=== PATIENT | male | born 1935 | race Caucasian/White ===

== ENCOUNTER 2020-11-24 07:58 | Inpatient (IN) | payer MEDICARE, BC ==
[2020-11-24] MEDS ORDERED: HYDROmorphone 0.5 MG/0.5 ML Syringe IVPUSH ONE ×2 (08:50→10:37)
[2020-11-24] MEDS ORDERED: Lactated Ringers 1,000 ML IV ONE ×2 (08:50→23:37)
--- NOTE | 2020-11-24 08:57 | EDM.PDOC ---
ED HPI GENERAL MEDICAL PROBLEM - General Chief Complaint: Abdominal Pain Stated Complaint: PAIN IN CHEST COUGHING Time Seen by Provider: 11/24/20 08:35 Source of Information: Reports: Patient, Old Records History Limitations: Reports: No Limitations - History of Present Illness INITIAL COMMENTS - FREE TEXT/NARRATIVE: 85 yo male presents with pain that began before bed last night. It started as RUQ pain and has since spread downward. He has not had fever or chills or nausea. Pain is not relieved or worsened by anything. No hx of the same. No pHx of any abdominal surgeries. He does report mild SOB, no cough. He had a normal BM last evening. He ate spaghetti with clam sauce for dinner before onset of sx's. Here with his . Onset: Gradual Onset Date: 11/23/20 Duration: Hour(s):, Getting Worse Location: Reports: Chest, Abdomen Quality: Reports: Ache (abdomen) Severity: Moderate Improves with: Reports: None Worsens with: Reports: Other (unsure) Context: Reports: Other (See HPI) Associated Symptoms: Denies: Fever/Chills, Nausea/Vomiting Treatments [employer]: Reports: Other (see below) (none) - Related Data Allergies Allergy/AdvReac Type Severity Reaction Status Date / Time amoxicillin Allergy Hives Verified 11/24/20 08:32 doxycycline Allergy Hives Verified 11/24/20 08:32 Home Meds: Home Meds ALPRAZolam [Xanax] 0.5 mg PO BEDTIME 05/11/16 [History] Brimonidine Tartrate/Timolol [Combigan 0.2%-0.5% Eye Drops] 1 drop TOP DAILY 05/11/16 [History] Cholecalciferol (Vitamin D3) [Vitamin D3] 1,000 unit PO DAILY 05/11/16 [History] Dorzolamide HCl/Timolol Maleat [Dorzolamide-Timolol Eye Drops] 1 drop TOP BID 05/11/16 [History] Fluticasone Propionate [Flonase Allergy Relief] 1 spray INH BID 05/11/16 [History] Hydrochlorothiazide/Lisinopril [Lisinopril-HCTZ 20-25 MG] 1 tab PO DAILY 05/11/16 [History] Multivitamin [Multi-Vitamin Daily] 1 tab PO DAILY 05/11/16 [History] PARoxetine [Paxil] 20 mg PO DAILY 05/11/16 [History] Simvastatin [Zocor] 20 mg PO BEDTIME 05/11/16 [History] Warfarin [Coumadin] 2.5 tab PO ASDIRECTED 05/11/16 [History] Warfarin [Coumadin] 3 mg PO ASDIRECTED 05/11/16 [History] amLODIPine [Norvasc] 5 mg PO DAILY #30 tab 05/12/16 [Rx] Loratadine/Pseudoephedrine [Claritin-D 12 Hour] 1 tab PO Q12HR 11/24/20 [History] Past Medical History HEENT History: Reports: Cataract, Glaucoma Cardiovascular History: Reports: Afib, Heart Murmur, High Cholesterol, Hypertension Respiratory History: Reports: Sleep Apnea Gastrointestinal History: Reports: Gastritis Musculoskeletal History: Reports: Osteoarthritis, Other (See Below) Other Musculoskeletal History: Draining l hip replacement.Multiple testing. Is no longer on antibiotic. Psychiatric History: Reports: Anxiety, Depression Endocrine/Metabolic History: Reports: Obesity/BMI 30+ Hematologic History: Reports: Blood Transfusion(s) - Infectious Disease History Infectious Disease History: Reports: Chicken Pox, Measles, Mumps - Past Surgical History Head Surgeries/Procedures: Reports: None HEENT Surgical History: Reports: Tonsillectomy Cardiovascular Surgical History: Reports: None Respiratory Surgical History: Reports: None GI Surgical History: Reports: Other (See Below) Other GI Surgeries/Procedures: sigmoidoscopy Endocrine Surgical History: Reports: None Musculoskeletal Surgical History: Reports: Hip Replacement Dermatological Surgical History: Reports: None Social & Family History - Tobacco Use Tobacco Use Status *Q: Former Tobacco User Used Tobacco, but Quit: Yes Month/Year Tobacco Last Used: 1989 Second Hand Smoke Exposure: No - Caffeine Use Caffeine Use: Reports: None - Recreational Drug Use Recreational Drug Use: No ED ROS GENERAL - Review of Systems Review Of Systems: See Below Constitutional: Reports: No Symptoms HEENT: Reports: No Symptoms Respiratory: Reports: Shortness of Breath. Denies: Wheezing, Pleuritic Chest Pain, Cough, Sputum, Hemoptysis Cardiovascular: Reports: No Symptoms Endocrine: Reports: No Symptoms GI/Abdominal: Reports: Abdominal Pain. Denies: Black Stool, Bloody Stool, Constipation, Diarrhea, Distension, Flatus, Hematemesis, Hematochezia, Melena, Nausea, Vomiting : Reports: No Symptoms Musculoskeletal: Reports: No Symptoms Skin: Reports: No Symptoms Neurological: Reports: No Symptoms Psychiatric: Reports: No Symptoms ED EXAM, GI/ABD - Physical Exam Exam: See Below Exam Limited By: No Limitations General Appearance: Alert, WD/WN, Mild Distress, Obese Eyes: Bilateral: Normal Appearance Ears: Normal External Exam, Normal Canal, Hearing Grossly Normal Nose: Normal Inspection, No Blood Throat/Mouth: Normal Inspection, Normal Lips, Normal Oropharynx, Normal Voice, No Airway Compromise, Other (dry oral mucosa) Head: Atraumatic, Normocephalic Neck: Normal Inspection Respiratory/Chest: No Respiratory Distress, Lungs Clear, Normal Breath Sounds, No Accessory Muscle Use Cardiovascular: No Edema, Tachycardia, Irregularly Irregular GI/Abdominal Exam: Soft, No Distention, Tender (RUQ). No: Non-Tender, Distended, Guarding, Rigid, Rebound Extremities: Normal Inspection Neurological: Alert, Oriented, CN II-XII Intact, Normal Cognition, No Motor/Sensory Deficits Psychiatric: Normal Affect, Normal Mood Skin Exam: Warm, Dry, Intact, Normal Color, No Rash Course - Vital Signs Text/Narrative:: Dr. Priest called @ 1231h Last Recorded V/S: Last Vital Signs Temp 36.4 C 11/24/20 08:38 Pulse 108 H 11/24/20 08:38 Resp 18 11/24/20 08:38 BP 135/54 L 11/24/20 08:38 Pulse Ox 92 L 11/24/20 08:38 - Orders/Labs/Meds Orders: Active Orders 24 hr Category Date Time Status Bladder Scan [RC] ASDIRECTED Care 11/24/20 11:44 Active Cardiac Monitoring [RC] .As Directed Care 11/24/20 08:57 Active EKG Documentation Completion [RC] ASDIRECTED Care 11/24/20 08:00 Active Chest 1V Frontal [CR] Stat Exams 11/24/20 08:51 Taken UA W/MICROSCOPIC [URIN] Stat Lab 11/24/20 08:51 Ordered Lactated Ringers [Ringers, Lactated] 1,000 ml Med 11/24/20 12:00 Active IV ASDIRECTED EKG 12 Lead [EK] Routine Ther 11/24/20 07:59 Stop Req Medication Orders Lactated Ringer's (Ringers, Lactated) 1,000 mls @ 500 mls/hr IV ASDIRECTED MILAN Labs: Laboratory Tests 11/24/20 11/24/20 11/24/20 Range/Units 09:30 09:30 09:30 WBC 12.9 H (4.5-11.0) K/uL RBC 4.28 L (4.30-5.90) M/uL Hgb 12.0 (12.0-15.0) g/dL Hct 37.8 L (40.0-54.0) % MCV 88 (80-98) fL MCH 28 (27-31) pg MCHC 32 (32-36) % Plt Count 380 (150-400) K/uL PT 25.6 H (9.5-12.0) sec INR 2.39 H (0.80-1.20) Sodium 139 L (140-148) mmol/L Potassium 4.1 (3.6-5.2) mmol/L Chloride 101 (100-108) mmol/L Carbon Dioxide 27 (21-32) mmol/L Anion Gap 15.1 H (5.0-14.0) mmol/L BUN 32 H D (7-18) mg/dL Creatinine 1.3 (0.8-1.3) mg/dL Est Cr Clr Drug Dosing 39.55 mL/min Estimated GFR (MDRD) 53 L (>60) Glucose 136 H (74-106) mg/dL Calcium 9.4 (8.5-10.1) mg/dL Total Bilirubin 1.1 H D (0.2-1.0) mg/dL AST 38 H D (15-37) U/L ALT 70 D (12-78) U/L Alkaline Phosphatase 189 H D (46-116) U/L Troponin I < 0.017 (0.000-0.056) ng/mL C-Reactive Protein 4.62 H (0.0-0.3) mg/dL Total Protein 7.6 (6.4-8.2) g/dL Albumin 3.1 L (3.4-5.0) g/dL Globulin 4.5 H (2.3-3.5) g/dL Albumin/Globulin Ratio 0.7 L (1.2-2.2) Lipase 135 (73-393) U/L Meds: Medications Generic Name Dose Route Start Last Admin Trade Name Freq PRN Reason Stop Dose Admin Lactated Ringer's 1,000 mls @ 500 mls/hr 11/24/20 12:00 Ringers, Lactated IV ASDIRECTED MILAN Discontinued Medications Generic Name Dose Route Start Last Admin Trade Name Freq PRN Reason Stop Dose Admin Hydromorphone HCl 0.5 mg 11/24/20 08:50 11/24/20 09:50 Hydromorphone 0.5 Mg/0.5 Ml Syringe IVPUSH 11/24/20 08:51 0.5 mg ONETIME ONE Administration Hydromorphone HCl 0.5 mg 11/24/20 10:37 11/24/20 10:58 Hydromorphone 0.5 Mg/0.5 Ml Syringe IVPUSH 11/24/20 10:38 0.5 mg ONETIME ONE Administration Lactated Ringer's 1,000 mls @ 1,000 mls/hr 11/24/20 08:50 11/24/20 09:50 Ringers, Lactated IV 11/24/20 09:49 1,000 mls/hr BOLUS ONE Administration Sodium Chloride 85 mls @ 3.5 mls/sec 11/24/20 11:00 11/24/20 11:19 Normal Saline IV 11/24/20 11:01 2.5 mls/sec ASDIRECTED MILAN Administration Iopamidol 150 ml 11/24/20 10:54 11/24/20 11:16 Iopamidol 612 Mg/Ml 500 Ml Multipack Bottle IV 11/24/20 10:55 100 ml ONETIME ONE Administration Ondansetron HCl 4 mg 11/24/20 09:52 11/24/20 09:58 Ondansetron 4 Mg/2 Ml Sdv IVPUSH 11/24/20 09:53 4 mg ONETIME ONE Administration Sodium Chloride 10 ml 11/24/20 10:54 11/24/20 11:19 Sodium Chloride 0.9% 10 Ml Syringe FLUSH 11/24/20 10:55 10 ml ONETIME ONE Administration - Radiology Interpretation Free Text/Narrative:: CXR-neg CT abd/pelvis with IV contrast- Impression : 1. Distended gallbladder with pericholecystic inflammatory change and/or gallbladder wall thickening. Mild perihepatic ascites inflammatory change in the lauri-hepatis. Findings suspicious for cholecystitis. 2. Left hip arthroplasty. There is fluid/ inflammatory change about the left hip arthroplasty which extends out to lateral hip. Correlate with patient`s surgical history. Please note that all CT scans at this facility use dose modulation, iterative reconstruction, and/or weight-based dosing when appropriate to reduce radiation dose to as low as reasonably achievable. Dictated by Dayna Montalvo MD @ 11/24/2020 12:27:[address] Results Date: 11/24/20 - Re-Assessments/Exams Free Text/Narrative Re-Assessment/Exam: 11/24/20 11:55 Bladder scan ~250 ml, will give another liter of LR Departure - Departure Time of Disposition: 12:35 Disposition: Admitted As Inpatient 67 Condition: Fair Clinical Impression: Acute cholecystitis - Discharge Information *PRESCRIPTION DRUG MONITORING PROGRAM REVIEWED*: Not Applicable *COPY OF PRESCRIPTION DRUG MONITORING REPORT IN PATIENT KRISTIE: Not Applicable Instructions: Cholecystitis, [id number] Referrals: PCP,None [Primary Care Provider] - Forms: ED Department Discharge Sepsis Event Note (ED) - Evaluation Sepsis Screening Result: No Definite Risk - Focused Exam Vital Signs: Vital Signs Temp Pulse Resp BP Pulse Ox 11/24/20 08:38 36.4 C 108 H 18 135/54 L 92 L 11/24/20 08:30 36.4 C 108 H 18 135/54 L 92 L - My Orders Last 24 Hours: My Active Orders 11/24/20 07:59 EKG 12 Lead [EK] Routine 11/24/20 08:00 EKG Documentation Completion [RC] ASDIRECTED 11/24/20 08:51 Chest 1V Frontal [CR] Stat UA W/MICROSCOPIC [URIN] Stat 11/24/20 08:57 Cardiac Monitoring [RC] .As Directed 11/24/20 11:44 Bladder Scan [RC] ASDIRECTED 11/24/20 12:00 Lactated Ringers [Ringers, Lactated] 1,000 ml IV ASDIRECTED - Assessment/Plan Last 24 Hours: My Active Orders 11/24/20 07:59 EKG 12 Lead [EK] Routine 11/24/20 08:00 EKG Documentation Completion [RC] ASDIRECTED 11/24/20 08:51 Chest 1V Frontal [CR] Stat UA W/MICROSCOPIC [URIN] Stat 11/24/20 08:57 Cardiac Monitoring [RC] .As Directed 11/24/20 11:44 Bladder Scan [RC] ASDIRECTED 11/24/20 12:00 Lactated Ringers [Ringers, Lactated] 1,000 ml IV ASDIRECTED
[2020-11-24] MEDS ORDERED: Ondansetron 4 MG/2 ML SDV IVPUSH ONE (09:52)
[2020-11-24] MEDS ORDERED: Sodium Chloride 0.9% 10 ML Syringe FLUSH ONE (10:54)
[2020-11-24] MEDS ORDERED: Iopamidol 612 MG/ML 500 ML Multipack Bottle IV ONE (10:54)
[2020-11-24] MEDS ORDERED: Lactated Ringers 1,000 ML IV SCH ×3 (12:00→21:00)
--- NOTE | 2020-11-24 12:29 | CRLCT ---
For Patients: As a result of the Century Cures Act, medical imaging exams and procedure reports are released immediately into your electronic medical record. You may view this report before your referring provider. If you have questions, please contact your health care provider. Indication: Right upper quadrant pain with elevated white count Technique: Contrast enhanced CT abdomen pelvis. 100 mL Isovue-300 Comparison: No comparison Findings: Heart is enlarged there is no pericardial effusion. Basilar atelectasis Small hiatal hernia. Spleen adrenal glands pancreas unremarkable. Atherosclerotic calcification of the abdominal aorta, ectatic. Symmetric enhancement of both kidneys bilateral renal cysts. Too small to small to characterize low-density lesions. Diverticulosis normal appendix. Bowel is unremarkable. Gallbladder is distended. Cholecystic inflammatory change and/or gallbladder wall thickening. Minimal perihepatic ascites. Periportal edema. Inflammatory changes in lauri-hepatis Small amount of in the pelvis. Hysterectomy. Left hip arthroplasty causing streak artifact. There is there is a fluid and/or inflammatory change about the left hip arthroplasty which extends out to the lateral hip. Small fat containing inguinal hernias. Impression : 1. Distended gallbladder with pericholecystic inflammatory change and/or gallbladder wall thickening. Mild perihepatic ascites inflammatory change in the lauri-hepatis. Findings suspicious for cholecystitis. 2. Left hip arthroplasty. There is fluid/ inflammatory change about the left hip arthroplasty which extends out to lateral hip. Correlate with patient`s surgical history. Please note that all CT scans at this facility use dose modulation, iterative reconstruction, and/or weight-based dosing when appropriate to reduce radiation dose to as low as reasonably achievable. Dictated by Dayna Montalvo MD @ 11/24/2020 12:27:[address] Dayna Montalvo @ Nov 24 2020 12:27PM
[2020-11-24 14:06] LABS: CORONAVIRUS COVID-19 NAA NEGATIVE (NEGATIVE)
[2020-11-24] MEDS ORDERED: Scopolamine 1.5 MG Transdermal Patch TOP PRN (15:32)
[2020-11-24] MEDS ORDERED: Promethazine 12.5 MG in Sodium Chloride 0.9% 50 ML IV PRN (15:37)
[2020-11-24] MEDS ORDERED: diphenhydrAMINE 50 MG/ML SDV IV PRN (15:38)
[2020-11-24] MEDS ORDERED: diphenhydrAMINE 25 MG Cap PO PRN (15:39)
[2020-11-24] MEDS ORDERED: Nicotine 14 MG/24 Hr Patch TRDERM PRN (15:39)
[2020-11-24] MEDS ORDERED: Phytonadione 5 MG in Sodium Chloride 0.9% 50 ML IV ONE (16:00)
[2020-11-24] MEDS: fentaNYL 100 MCG/2 ML SDV IV PRN ×2 (16:02→17:24)
[2020-11-24] MEDS: Sodium Chloride 0.9% 1,000 ML IV SCH (16:13)
--- NOTE | 2020-11-24 16:47 | PCM.CONS ---
H&P History of Present Illness - General Date of Service: 11/24/20 Source of Information: Patient, Family, Old Records, Provider, RN Notes Reviewed History Limitations: Reports: No Limitations - History of Present Illness Initial Comments - Free Text/Narative: Mr. Casey is an 85-year-old gentleman who I been asked to see by Dr. Priest for suggestions concerning evaluation management of anticoagulation pending surgery tomorrow for acute cholecystitis. Mr. Casey was feeling well until last night when he noted onset of right upper quadrant abdominal pain associated with nausea. Pain was persistent and became more intense to the point that he was unable to sleep. He presented to the emergency department this morning for further evaluation. CT scan of the abdomen pelvis shows evidence of acute cholecystitis. He is on long-term oral anticoagulation with warfarin for management of his atrial fibrillation. INR today was therapeutic at 2.39. - Related Data Allergies/Adverse Reactions: Allergies Allergy/AdvReac Type Severity Reaction Status Date / Time amoxicillin Allergy Hives Verified 11/24/20 08:32 doxycycline Allergy Hives Verified 11/24/20 08:32 Home Medications: Home Meds ALPRAZolam [Xanax] 0.5 mg PO BEDTIME 05/11/16 [History] Brimonidine Tartrate/Timolol [Combigan 0.2%-0.5% Eye Drops] 1 drop TOP DAILY 05/11/16 [History] Cholecalciferol (Vitamin D3) [Vitamin D3] 1,000 unit PO DAILY 05/11/16 [History] Dorzolamide HCl/Timolol Maleat [Dorzolamide-Timolol Eye Drops] 1 drop TOP BID 05/11/16 [History] Fluticasone Propionate [Flonase Allergy Relief] 1 spray INH BID 05/11/16 [History] Hydrochlorothiazide/Lisinopril [Lisinopril-HCTZ 20-25 MG] 1 tab PO DAILY 05/11/16 [History] Multivitamin [Multi-Vitamin Daily] 1 tab PO DAILY 05/11/16 [History] PARoxetine [Paxil] 20 mg PO DAILY 05/11/16 [History] Simvastatin [Zocor] 20 mg PO BEDTIME 05/11/16 [History] Warfarin [Coumadin] 2.5 tab PO ASDIRECTED 05/11/16 [History] Warfarin [Coumadin] 3 mg PO ASDIRECTED 05/11/16 [History] amLODIPine [Norvasc] 5 mg PO DAILY #30 tab 05/12/16 [Rx] Loratadine/Pseudoephedrine [Claritin-D 12 Hour] 1 tab PO Q12HR 11/24/20 [History] Past Medical History HEENT History: Reports: Cataract, Glaucoma Cardiovascular History: Reports: Afib, Heart Murmur, High Cholesterol, Hyp ertension Respiratory History: Reports: Sleep Apnea Gastrointestinal History: Reports: Gastritis Musculoskeletal History: Reports: Osteoarthritis, Other (See Below) Other Musculoskeletal History: Draining l hip replacement.Multiple testing. Is no longer on antibiotic. Psychiatric History: Reports: Anxiety, Depression Endocrine/Metabolic History: Reports: Obesity/BMI 30+ Hematologic History: Reports: Blood Transfusion(s) - Infectious Disease History Infectious Disease History: Reports: Chicken Pox, Measles, Mumps - Past Surgical History Head Surgeries/Procedures: Reports: None HEENT Surgical History: Reports: Tonsillectomy Cardiovascular Surgical History: Reports: None Respiratory Surgical History: Reports: None GI Surgical History: Reports: Other (See Below) Other GI Surgeries/Procedures: sigmoidoscopy Endocrine Surgical History: Reports: None Musculoskeletal Surgical History: Reports: Hip Replacement Dermatological Surgical History: Reports: None Social & Family History - Tobacco Use Tobacco Use Status *Q: Former Tobacco User Used Tobacco, but Quit: Yes Month/Year Tobacco Last Used: 1989 Second Hand Smoke Exposure: No - Caffeine Use Caffeine Use: Reports: None - Recreational Drug Use Recreational Drug Use: No H&P Review of Systems - Review of Systems: Review Of Systems: See Below General: Reports: No Symptoms HEENT: Reports: No Symptoms Pulmonary: Reports: No Symptoms Cardiovascular: Reports: No Symptoms Gastrointestinal: Reports: Abdominal Pain, Nausea. Denies: Constipation, Diarrhea, Difficulty Swallowing, Distension, Hematemesis, Hematochezia, Melena, Vomiting Genitourinary: Reports: No Symptoms Musculoskeletal: Reports: Joint Pain Skin: Reports: No Symptoms Psychiatric: Reports: No Symptoms Neurological: Reports: No Symptoms Hematologic/Lymphatic: Reports: No Symptoms Immunologic: Reports: No Symptoms Exam - Exam Exam: See Below - Vital Signs Vital Signs: Last Vital Signs Temp 97.5 F 11/24/20 08:38 Pulse 108 H 11/24/20 08:38 Resp 18 11/24/20 08:38 BP 135/54 L 11/24/20 08:38 Pulse Ox 92 L 11/24/20 08:38 Weight: 248 lb - Exam General: Alert, Oriented, Cooperative, Moderate Distress HEENT: Conjunctiva Clear, Hearing Intact, Mucosa Moist & Mcgrath. No: Normal Nasal Septum, Posterior Pharynx Clear, Pupils Equal Neck: Supple, Trachea Midline, +2 Carotid Pulse wo Bruit Lungs: Clear to Auscultation, Normal Respiratory Effort Cardiovascular: Regular Rate, Normal S1, Normal S2, Irregular Rhythm. No: Systolic Murmur, Diastolic Murmur GI/Abdominal Exam: Soft, No Organomegaly, Tender. No: Distended, Guarding, Rigid, Rebound Back Exam: Normal Inspection, Full Range of Motion Extremities: Non-Tender, No Pedal Edema Skin: Warm, Dry, Intact - Patient Data Lab Results Last 24 hrs: Laboratory Results - last 24 hr 11/24/20 11/24/20 11/24/20 Range/Units 09:30 09:30 09:30 WBC 12.9 H (4.5-11.0) K/uL RBC 4.28 L (4.30-5.90) M/uL Hgb 12.0 (12.0-15.0) g/dL Hct 37.8 L (40.0-54.0) % MCV 88 (80-98) fL MCH 28 (27-31) pg MCHC 32 (32-36) % Plt Count 380 (150-400) K/uL PT 25.6 H (9.5-12.0) sec INR 2.39 H (0.80-1.20) Sodium 139 L (140-148) mmol/L Potassium 4.1 (3.6-5.2) mmol/L Chloride 101 (100-108) mmol/L Carbon Dioxide 27 (21-32) mmol/L Anion Gap 15.1 H (5.0-14.0) mmol/L BUN 32 H D (7-18) mg/dL Creatinine 1.3 (0.8-1.3) mg/dL Est Cr Clr Drug Dosing 39.55 mL/min Estimated GFR (MDRD) 53 L (>60) Glucose 136 H (74-106) mg/dL Calcium 9.4 (8.5-10.1) mg/dL Total Bilirubin 1.1 H D (0.2-1.0) mg/dL AST 38 H D (15-37) U/L ALT 70 D (12-78) U/L Alkaline Phosphatase 189 H D (46-116) U/L Troponin I < 0.017 (0.000-0.056) ng/mL C-Reactive Protein 4.62 H (0.0-0.3) mg/dL Total Protein 7.6 (6.4-8.2) g/dL Albumin 3.1 L (3.4-5.0) g/dL Globulin 4.5 H (2.3-3.5) g/dL Albumin/Globulin Ratio 0.7 L (1.2-2.2) Lipase 135 (73-393) U/L Influenza Type A RNA (NEGATIVE) RSV RNA (INAAT) (NEGATIVE) Influenza Type B RNA (NEGATIVE) SARS-CoV-2 RNA (RONNIE) (NEGATIVE) 11/24/20 Range/Units 12:42 WBC (4.5-11.0) K/uL RBC (4.30-5.90) M/uL Hgb (12.0-15.0) g/dL Hct (40.0-54.0) % MCV (80-98) fL MCH (27-31) pg MCHC (32-36) % Plt Count (150-400) K/uL PT (9.5-12.0) sec INR (0.80-1.20) Sodium (140-148) mmol/L Potassium (3.6-5.2) mmol/L Chloride (100-108) mmol/L Carbon Dioxide (21-32) mmol/L Anion Gap (5.0-14.0) mmol/L BUN (7-18) mg/dL Creatinine (0.8-1.3) mg/dL Est Cr Clr Drug Dosing mL/min Estimated GFR (MDRD) (>60) Glucose (74-106) mg/dL Calcium (8.5-10.1) mg/dL Total Bilirubin (0.2-1.0) mg/dL AST (15-37) U/L ALT (12-78) U/L Alkaline Phosphatase (46-116) U/L Troponin I (0.000-0.056) ng/mL C-Reactive Protein (0.0-0.3) mg/dL Total Protein (6.4-8.2) g/dL Albumin (3.4-5.0) g/dL Globulin (2.3-3.5) g/dL Albumin/Globulin Ratio (1.2-2.2) Lipase (73-393) U/L Influenza Type A RNA Negative (NEGATIVE) RSV RNA (INAAT) Negative (NEGATIVE) Influenza Type B RNA Negative (NEGATIVE) SARS-CoV-2 RNA (RONNIE) Negative (NEGATIVE) Result Diagrams: 11/24/20 09:30 11/24/20 09:30 Sepsis Event Note - Evaluation Sepsis Screening Result: No Definite Risk - Focused Exam Vital Signs: Vital Signs Temp Pulse Resp BP Pulse Ox 11/24/20 08:38 97.5 F 108 H 18 135/54 L 92 L 11/24/20 08:30 97.5 F 108 H 18 135/54 L 92 L Consult PN Assessment/Plan Procedures: Procedures ASSAY OF DIGOXIN TOTAL (05/11/16) ASSAY OF LACTIC ACID (05/11/16) ASSAY OF TROPONIN QUANT (05/11/16) C-REACTIVE PROTEIN (05/11/16) CHEST X-RAY 1 VIEW FRONTAL (05/11/16) COMPLETE CBC W/AUTO DIFF WBC (05/11/16) COMPREHEN METABOLIC PANEL (05/11/16) ELECTROCARDIOGRAM TRACING (05/11/16) EMERGENCY DEPT VISIT (05/11/16) HYDRATE IV INFUSION ADD-ON (05/11/16) HYDRATION IV INFUSION INIT (05/11/16) METABOLIC PANEL TOTAL CA (05/11/16) PROTHROMBIN TIME (05/11/16) PT EVALUATION (05/11/16) RBC SED RATE NONAUTOMATED (05/11/16) ROUTINE VENIPUNCTURE (05/11/16) URINALYSIS AUTO W/SCOPE (05/11/16) Problem List Initiated/Reviewed/Updated: Yes My Orders Last 24 Hours: My Active Orders 11/24/20 13:20 Phytonadione [AquaMephyton] 5 mg Sodium Chloride 0.9% [Normal Saline] 50 ml IV NOW 11/25/20 05:11 INR,PT,PROTHROMBIN TIME [COAG] AM Plan: ASSESSMENT AND RECOMMENDATIONS ACUTE CHOLECYSTITIS-plan for surgery in a.m. -Management per Dr. Priest ANTICOAGULATION WITH ELEVATED INR-he is on long-term oral anticoagulation with warfarin because of chronic atrial fibrillation. -Hold warfarin -Vitamin K 5 mg IV now -Recheck INR in a.m. Requesting Provider: FITZ Date Consult Requested: 11/24/20 Reason for Consult: Cholecystitis, elevated INR Patient History Reviewed: Yes
[2020-11-24] MEDS ORDERED: Ertapenem 1 GM in Sodium Chloride 0.9% 100 ML IV SCH (19:00)
--- NOTE | 2020-11-24 20:40 | PCM.SN.2 ---
- Free Text/Narrative Note: Mr. Casey is an 85-year-old gentleman who I saw earlier today concerning his elevated INR. He was admitted through the emergency room with acute cholecystitis. I was asked to see him this evening by nursing staff because of hypotension and hypoxia. After transfer to the floor he was noted to have hypoxia and required 3 to 4 L of oxygen via nasal cannula to maintain adequate oxygenation. He was attempting to get out of bed and became extremely lightheaded and weak. Blood pressure was obtained and found to be 63 systolic. He has received 1 L of IV fluid over the last hour and pressure has improved but is not yet within desired range. I am concerned about give him large volume of fluid because of his respiratory compromise. We will now run fluids at 250 an hour for 4 hours and then down to 125 an hour if he has ongoing hypotension we will plan to move towards use of norepinephrine. Respiratory status seems to be fairly stable thus far and he remains on 4 L of oxygen per minute via nasal cannula with adequate saturations. If he should develop further compromise we will plan to proceed with BiPAP. Other labs show an increase in creatinine from 1.3-1.8. Lactic acid and troponin level are within normal range. He has been started on ertapenem by Dr. Priest and his first dose is running now.
[2020-11-24] MEDS ORDERED: Fluticasone Propionate Nasal Spray 16 GM Bottle NASBOTH SCH (21:00)
[2020-11-24] MEDS: Dorzolamide/Timolol 2%-0.5% Ophth Soln 10 ML Bottle EYEBOTH SCH (21:45)
[2020-11-24] MEDS: atorvaSTATin 10 MG Tab PO SCH (21:45)
[2020-11-24] MEDS: ALPRAZolam 0.5 MG Tab PO SCH (23:53)
[2020-11-25] MEDS: Sodium Chloride 0.9% 1,000 ML IV SCH ×3 (01:45→17:11)
[2020-11-25] MEDS: Pantoprazole 40 MG Vial IVPUSH SCH ×2 (02:33→14:01)
[2020-11-25] MEDS: Norepinephrine 4 MG in Dextrose 5% in Water 246 ML IV SCH ×4 (02:34→13:44)
[2020-11-25] MEDS ORDERED: Lisinopril 20 MG Tab PO SCH (09:00)
[2020-11-25] MEDS ORDERED: Non-Formulary Medication 1 Each (Hydrochlorothiazide/Lisinopril [Lisinopril-Hctz 20-25 Mg] PO SCH (09:00)
[2020-11-25] MEDS ORDERED: Hydrochlorothiazide 25 MG Tab PO SCH (09:00)
[2020-11-25] MEDS ORDERED: Timolol Maleate 0.5% Ophth Soln 5 ML Bottle EYEBOTH SCH (09:00)
[2020-11-25] MEDS ORDERED: amLODIPine 5 MG Tab PO SCH (09:00)
[2020-11-25] MEDS: Brimonidine 0.2% Ophth Soln 5 ML Bottle EYEBOTH SCH (09:12)
[2020-11-25] MEDS: Dorzolamide/Timolol 2%-0.5% Ophth Soln 10 ML Bottle EYEBOTH SCH ×2 (09:13→21:03)
[2020-11-25] MEDS: Fluticasone Propionate Nasal Spray 16 GM Bottle NASBOTH SCH ×3 (09:13→21:06)
[2020-11-25] MEDS: PARoxetine 20 MG Tab PO SCH (09:20)
--- NOTE | 2020-11-25 09:21 | PCM.PN ---
- General Info Date of Service: 11/25/20 Subjective Update: No acute events overnight since transfer to the intensive care unit. Patient reports that he does not feel short of breath at this time and has not been coughing. He is currently requiring 2 L of supplemental oxygen. He reports moderate abdominal pain that is much worse with any sort of palpation. He reports 5 episodes of bloody diarrhea which have been small quantity. He has had some nausea. He is requiring norepinephrine to maintain his blood pressure. White blood cell count is higher today. Functional Status: Reports: Pain Controlled - Review of Systems General: Denies: Fever Gastrointestinal: Reports: Abdominal Pain - Patient Data Vitals - Most Recent: Last Vital Signs Temp 36.6 C 11/25/20 07:48 Pulse 106 H 11/24/20 22:00 Resp 20 11/25/20 09:00 BP 118/53 L 11/25/20 09:00 Pulse Ox 92 L 11/25/20 09:00 Weight - Most Recent: 113.398 kg I&O - Last 24 Hours: Intake & Output 11/24/20 11/25/20 11/25/20 22:59 06:59 14:59 Intake Total 1060 5435 Output Total 300 Balance 1060 5135 Lab Results Last 24 Hours: Laboratory Results - last 24 hr 11/24/20 11/24/20 11/24/20 Range/Units 09:30 09:30 09:30 WBC 12.9 H (4.5-11.0) K/uL RBC 4.28 L (4.30-5.90) M/uL Hgb 12.0 (12.0-15.0) g/dL Hct 37.8 L (40.0-54.0) % MCV 88 (80-98) fL MCH 28 (27-31) pg MCHC 32 (32-36) % Plt Count 380 (150-400) K/uL Neut % (Auto) (36-66) % Lymph % (Auto) (24-44) % [place] % (Auto) (2-6) % Eos % (Auto) (2-4) % Baso % (Auto) (0-1) % PT 25.6 H (9.5-12.0) sec INR 2.39 H (0.80-1.20) Puncture Site ABG pH (7.350-7.450) ABG pCO2 (35.0-42.0) mmHg ABG pO2 (75.0-100.0) mmHg ABG HCO3 (22.0-26.0) mmol/L ABG Total CO2 (23.0-27.0) mmol/L ABG O2 Saturation (95.0-98.0) % ABG O2 Content (15.0-23.0) %vol ABG Base Excess mm/L ABG Hemoglobin (13.5-18.0) g/dL ABG Oxyhemoglobin % ABG Carboxyhemoglobin (0.0-1.6) % ABG Methemoglobin % Martin Test O2 Delivery Device Oxygen Flow Rate L Sodium 139 L (140-148) mmol/L Potassium 4.1 (3.6-5.2) mmol/L Chloride 101 (100-108) mmol/L Carbon Dioxide 27 (21-32) mmol/L Anion Gap 15.1 H (5.0-14.0) mmol/L BUN 32 H D (7-18) mg/dL Creatinine 1.3 (0.8-1.3) mg/dL Est Cr Clr Drug Dosing 39.55 mL/min Estimated GFR (MDRD) 53 L (>60) Glucose 136 H (74-106) mg/dL Lactic Acid (0.4-2.0) mmol/L Calcium 9.4 (8.5-10.1) mg/dL Total Bilirubin 1.1 H D (0.2-1.0) mg/dL AST 38 H D (15-37) U/L ALT 70 D (12-78) U/L Alkaline Phosphatase 189 H D (46-116) U/L Troponin I < 0.017 (0.000-0.056) ng/mL C-Reactive Protein 4.62 H (0.0-0.3) mg/dL Total Protein 7.6 (6.4-8.2) g/dL Albumin 3.1 L (3.4-5.0) g/dL Globulin 4.5 H (2.3-3.5) g/dL Albumin/Globulin Ratio 0.7 L (1.2-2.2) Lipase 135 (73-393) U/L Influenza Type A RNA (NEGATIVE) RSV RNA (INAAT) (NEGATIVE) Influenza Type B RNA (NEGATIVE) SARS-CoV-2 RNA (RONNIE) (NEGATIVE) Blood Type Gel Antibody Screen Crossmatch 11/24/20 11/24/20 11/24/20 Range/Units 12:42 19:30 19:30 WBC 16.4 H (4.5-11.0) K/uL RBC 4.20 L (4.30-5.90) M/uL Hgb 11.7 L (12.0-15.0) g/dL Hct 37.3 L (40.0-54.0) % MCV 89 (80-98) fL MCH 28 (27-31) pg MCHC 31 L (32-36) % Plt Count 335 (150-400) K/uL Neut % (Auto) 80.8 H (36-66) % Lymph % (Auto) 11.5 L (24-44) % [place] % (Auto) 7.6 H (2-6) % Eos % (Auto) 0.0 L (2-4) % Baso % (Auto) 0.1 (0-1) % PT (9.5-12.0) sec INR (0.80-1.20) Puncture Site ABG pH (7.350-7.450) ABG pCO2 (35.0-42.0) mmHg ABG pO2 (75.0-100.0) mmHg ABG HCO3 (22.0-26.0) mmol/L ABG Total CO2 (23.0-27.0) mmol/L ABG O2 Saturation (95.0-98.0) % ABG O2 Content (15.0-23.0) %vol ABG Base Excess mm/L ABG Hemoglobin (13.5-18.0) g/dL ABG Oxyhemoglobin % ABG Carboxyhemoglobin (0.0-1.6) % ABG Methemoglobin % Martin Test O2 Delivery Device Oxygen Flow Rate L Sodium 137 L (140-148) mmol/L Potassium 4.7 (3.6-5.2) mmol/L Chloride 103 (100-108) mmol/L Carbon Dioxide 23 (21-32) mmol/L Anion Gap 15.7 H (5.0-14.0) mmol/L BUN 39 H (7-18) mg/dL Creatinine 1.8 H (0.8-1.3) mg/dL Est Cr Clr Drug Dosing 28.56 mL/min Estimated GFR (MDRD) 36 L (>60) Glucose 90 (74-106) mg/dL Lactic Acid (0.4-2.0) mmol/L Calcium 9.2 (8.5-10.1) mg/dL Total Bilirubin (0.2-1.0) mg/dL AST (15-37) U/L ALT (12-78) U/L Alkaline Phosphatase (46-116) U/L Troponin I 0.019 (0.000-0.056) ng/mL C-Reactive Protein (0.0-0.3) mg/dL Total Protein (6.4-8.2) g/dL Albumin (3.4-5.0) g/dL Globulin (2.3-3.5) g/dL Albumin/Globulin Ratio (1.2-2.2) Lipase (73-393) U/L Influenza Type A RNA Negative (NEGATIVE) RSV RNA (INAAT) Negative (NEGATIVE) Influenza Type B RNA Negative (NEGATIVE) SARS-CoV-2 RNA (RONNIE) Negative (NEGATIVE) Blood Type Gel Antibody Screen Crossmatch 11/24/20 11/24/20 11/24/20 Range/Units 19:30 19:38 19:38 WBC (4.5-11.0) K/uL RBC (4.30-5.90) M/uL Hgb (12.0-15.0) g/dL Hct (40.0-54.0) % MCV (80-98) fL MCH (27-31) pg MCHC (32-36) % Plt Count (150-400) K/uL Neut % (Auto) (36-66) % Lymph % (Auto) (24-44) % [place] % (Auto) (2-6) % Eos % (Auto) (2-4) % Baso % (Auto) (0-1) % PT (9.5-12.0) sec INR (0.80-1.20) Puncture Site Lt brachial ABG pH 7.357 (7.350-7.450) ABG pCO2 41.6 (35.0-42.0) mmHg ABG pO2 71.1 L (75.0-100.0) mmHg ABG HCO3 22.7 (22.0-26.0) mmol/L ABG Total CO2 20.8 L (23.0-27.0) mmol/L ABG O2 Saturation 92.6 L (95.0-98.0) % ABG O2 Content 15.3 (15.0-23.0) %vol ABG Base Excess -2.1 mm/L ABG Hemoglobin 12.1 L (13.5-18.0) g/dL ABG Oxyhemoglobin 90.3 % ABG Carboxyhemoglobin 1.6 (0.0-1.6) % ABG Methemoglobin 0.9 % Martin Test N/a O2 Delivery Device Nasal cannula Oxygen Flow Rate 5.0 L Sodium (140-148) mmol/L Potassium (3.6-5.2) mmol/L Chloride (100-108) mmol/L Carbon Dioxide (21-32) mmol/L Anion Gap (5.0-14.0) mmol/L BUN (7-18) mg/dL Creatinine (0.8-1.3) mg/dL Est Cr Clr Drug Dosing mL/min Estimated GFR (MDRD) (>60) Glucose (74-106) mg/dL Lactic Acid 1.4 (0.4-2.0) mmol/L Calcium (8.5-10.1) mg/dL Total Bilirubin (0.2-1.0) mg/dL AST (15-37) U/L ALT (12-78) U/L Alkaline Phosphatase (46-116) U/L Troponin I (0.000-0.056) ng/mL C-Reactive Protein (0.0-0.3) mg/dL Total Protein (6.4-8.2) g/dL Albumin (3.4-5.0) g/dL Globulin (2.3-3.5) g/dL Albumin/Globulin Ratio (1.2-2.2) Lipase (73-393) U/L Influenza Type A RNA (NEGATIVE) RSV RNA (INAAT) (NEGATIVE) Influenza Type B RNA (NEGATIVE) SARS-CoV-2 RNA (RONNIE) (NEGATIVE) Blood Type B POSITIVE Gel Antibody Screen Negative Crossmatch See Detail 11/24/20 11/25/20 11/25/20 Range/Units 23:20 01:08 04:10 WBC (4.5-11.0) K/uL RBC (4.30-5.90) M/uL Hgb 12.1 11.1 L (12.0-15.0) g/dL Hct (40.0-54.0) % MCV (80-98) fL MCH (27-31) pg MCHC (32-36) % Plt Count (150-400) K/uL Neut % (Auto) (36-66) % Lymph % (Auto) (24-44) % [place] % (Auto) (2-6) % Eos % (Auto) (2-4) % Baso % (Auto) (0-1) % PT 19.1 H (9.5-12.0) sec INR 1.77 H (0.80-1.20) Puncture Site ABG pH (7.350-7.450) ABG pCO2 (35.0-42.0) mmHg ABG pO2 (75.0-100.0) mmHg ABG HCO3 (22.0-26.0) mmol/L ABG Total CO2 (23.0-27.0) mmol/L ABG O2 Saturation (95.0-98.0) % ABG O2 Content (15.0-23.0) %vol ABG Base Excess mm/L ABG Hemoglobin (13.5-18.0) g/dL ABG Oxyhemoglobin % ABG Carboxyhemoglobin (0.0-1.6) % ABG Methemoglobin % Martin Test O2 Delivery Device Oxygen Flow Rate L Sodium (140-148) mmol/L Potassium (3.6-5.2) mmol/L Chloride (100-108) mmol/L Carbon Dioxide (21-32) mmol/L Anion Gap (5.0-14.0) mmol/L BUN (7-18) mg/dL Creatinine (0.8-1.3) mg/dL Est Cr Clr Drug Dosing mL/min Estimated GFR (MDRD) (>60) Glucose (74-106) mg/dL Lactic Acid (0.4-2.0) mmol/L Calcium (8.5-10.1) mg/dL Total Bilirubin (0.2-1.0) mg/dL AST (15-37) U/L ALT (12-78) U/L Alkaline Phosphatase (46-116) U/L Troponin I (0.000-0.056) ng/mL C-Reactive Protein (0.0-0.3) mg/dL Total Protein (6.4-8.2) g/dL Albumin (3.4-5.0) g/dL Globulin (2.3-3.5) g/dL Albumin/Globulin Ratio (1.2-2.2) Lipase (73-393) U/L Influenza Type A RNA (NEGATIVE) RSV RNA (INAAT) (NEGATIVE) Influenza Type B RNA (NEGATIVE) SARS-CoV-2 RNA (RONNIE) (NEGATIVE) Blood Type Gel Antibody Screen Crossmatch 11/25/20 11/25/20 Range/Units 04:10 04:10 WBC 19.2 H (4.5-11.0) K/uL RBC 4.13 L (4.30-5.90) M/uL Hgb 11.8 L (12.0-15.0) g/dL Hct 36.5 L (40.0-54.0) % MCV 88 (80-98) fL MCH 29 (27-31) pg MCHC 32 (32-36) % Plt Count 328 (150-400) K/uL Neut % (Auto) 81.6 H (36-66) % Lymph % (Auto) 8.4 L (24-44) % [place] % (Auto) 9.8 H (2-6) % Eos % (Auto) 0.0 L (2-4) % Baso % (Auto) 0.2 (0-1) % PT (9.5-12.0) sec INR (0.80-1.20) Puncture Site ABG pH (7.350-7.450) ABG pCO2 (35.0-42.0) mmHg ABG pO2 (75.0-100.0) mmHg ABG HCO3 (22.0-26.0) mmol/L ABG Total CO2 (23.0-27.0) mmol/L ABG O2 Saturation (95.0-98.0) % ABG O2 Content (15.0-23.0) %vol ABG Base Excess mm/L ABG Hemoglobin (13.5-18.0) g/dL ABG Oxyhemoglobin % ABG Carboxyhemoglobin (0.0-1.6) % ABG Methemoglobin % Martin Test O2 Delivery Device Oxygen Flow Rate L Sodium 140 (140-148) mmol/L Potassium 3.7 (3.6-5.2) mmol/L Chloride 103 (100-108) mmol/L Carbon Dioxide 25 (21-32) mmol/L Anion Gap 11.7 (5.0-14.0) mmol/L BUN 40 H (7-18) mg/dL Creatinine 1.7 H (0.8-1.3) mg/dL Est Cr Clr Drug Dosing 30.24 mL/min Estimated GFR (MDRD) 39 L (>60) Glucose 90 (74-106) mg/dL Lactic Acid (0.4-2.0) mmol/L Calcium 8.7 (8.5-10.1) mg/dL Total Bilirubin 1.7 H D (0.2-1.0) mg/dL AST 45 H (15-37) U/L ALT 59 (12-78) U/L Alkaline Phosphatase 106 (46-116) U/L Troponin I (0.000-0.056) ng/mL C-Reactive Protein (0.0-0.3) mg/dL Total Protein 6.2 L (6.4-8.2) g/dL Albumin 2.3 L (3.4-5.0) g/dL Globulin 3.9 H (2.3-3.5) g/dL Albumin/Globulin Ratio 0.6 L (1.2-2.2) Lipase (73-393) U/L Influenza Type A RNA (NEGATIVE) RSV RNA (INAAT) (NEGATIVE) Influenza Type B RNA (NEGATIVE) SARS-CoV-2 RNA (RONNIE) (NEGATIVE) Blood Type Gel Antibody Screen Crossmatch Cornelius Results Last 24 Hours: Microbiology 11/24/20 22:00 Stool Occult Blood (CORNELIUS) - Final Stool / Feces Med Orders - Current: Current Medications Alprazolam (Alprazolam 0.5 Mg Tab) 0.5 mg PO BEDTIME [facility] Last Admin: 11/24/20 23:53 Dose: 0.5 mg Documented by: Atorvastatin Calcium (Atorvastatin 10 Mg Tab) 10 mg PO BEDTIME [facility] Last Admin: 11/24/20 21:45 Dose: 10 mg Documented by: Brimonidine Tartrate (Brimonidine 0.2% Ophth Soln 5 Ml Bottle) 0 ml EYEBOTH DAILY [facility] Last Admin: 11/25/20 09:12 Dose: 1 drop Documented by: Ropivacaine 55 ml/Dexamethasone 8 mg/Epinephrine HCl 0.4 mg/ Sodium Chloride 22.6 ml 0 ml NERVRT ASDIRECTED [facility] Diphenhydramine HCl (Diphenhydramine 50 Mg/Ml Sdv) 25 - 50 mg IV Q4H PRN PRN Reason: ITCHING Diphenhydramine HCl (Diphenhydramine 25 Mg Cap) 25 - 50 mg PO Q4H PRN PRN Reason: ITCHING Dorzolamide/Timolol (Dorzolamide/Timolol 2%-0.5% Ophth Soln 10 Ml Bottle) 0 ml EYEBOTH BID [facility] [place] Last Admin: 11/25/20 09:13 Dose: 1 drop Documented by: Fentanyl (Fentanyl 100 Mcg/2 Ml Sdv) 10 - 30 mcg IV Q1H PRN PRN Reason: PAIN Last Admin: 11/24/20 17:24 Dose: 10 mcg Documented by: Fluticasone Propionate (Fluticasone Propionate Nasal Roundup 16 Gm Bottle) 0 gm NASBOTH BID [facility] [place] Last Admin: 11/25/20 09:13 Dose: Not Given Documented by: Sodium Chloride (Normal Saline) 1,000 mls @ 125 mls/hr IV ASDIRECTED [facility] [place] Last Admin: 11/25/20 01:45 Dose: 125 mls/hr Documented by: Promethazine HCl 12.5 mg/ (Sodium Chloride) 50.5 mls @ 202 mls/hr IV Q8H PRN PRN Reason: NAUSEA Ertapenem 1 gm/ Sodium (Chloride) 100 mls @ 200 mls/hr IV Q24H [facility] [place] Last Admin: 11/24/20 19:42 Dose: 200 mls/hr Documented by: Norepinephrine Bitartrate 4 mg (/ Dextrose/Water) 250 mls @ 7.5 mls/hr IV TITRATE [facility]; Protocol Last Titration: 11/25/20 09:19 Dose: 5 mcg/min, 18.75 mls/hr Documented by: Morphine Sulfate (Morphine 2 Mg/Ml Syringe) 1 - 3 mg IV Q1H PRN PRN Reason: PAIN Nicotine (Nicotine 14 Mg/24 Hr Patch) 14 mg TRDERM DAILY PRN PRN Reason: SMOKING CESSATION Ondansetron HCl (Ondansetron 4 Mg/2 Ml Sdv) 4 mg IVPUSH Q8H PRN PRN Reason: Nausea Pantoprazole Sodium (Pantoprazole 40 Mg Vial) 40 mg IVPUSH Q12H [facility] [place] Last Admin: 11/25/20 02:33 Dose: 40 mg Documented by: Paroxetine HCl (Paroxetine 20 Mg Tab) 20 mg PO DAILY [facility] [place] Last Admin: 11/25/20 09:20 Dose: Not Given Documented by: Scopolamine (Scopolamine 1.5 Mg Transdermal Patch) 1.5 mg TOP Q72H PRN PRN Reason: NAUSEA Discontinued Medications Amlodipine Besylate (Amlodipine 5 Mg Tab) 5 mg PO DAILY [facility] [place] Fluticasone Propionate (Fluticasone Propionate Nasal Roundup 16 Gm Bottle) 0 gm NASBOTH BID [facility] [place] Last Admin: 11/24/20 21:45 Dose: 1 spray Documented by: Hydrochlorothiazide (Hydrochlorothiazide 25 Mg Tab) 25 mg PO DAILY [facility] [place] Hydromorphone HCl (Hydromorphone 0.5 Mg/0.5 Ml Syringe) 0.5 mg IVPUSH ONETIME ONE Stop: 11/24/20 08:51 Last Admin: 11/24/20 09:50 Dose: 0.5 mg Documented by: Hydromorphone HCl (Hydromorphone 0.5 Mg/0.5 Ml Syringe) 0.5 mg IVPUSH ONETIME ONE Stop: 11/24/20 10:38 Last Admin: 11/24/20 10:58 Dose: 0.5 mg Documented by: Lactated Ringer's (Ringers, Lactated) 1,000 mls @ 1,000 mls/hr IV BOLUS ONE Stop: 11/24/20 09:49 Last Admin: 11/24/20 09:50 Dose: 1,000 mls/hr Documented by: Sodium Chloride (Normal Saline) 85 mls @ 3.5 mls/sec IV ASDIRECTED [facility] Stop: 11/24/20 11:01 Last Admin: 11/24/20 11:19 Dose: 2.5 mls/sec Documented by: Lactated Ringer's (Ringers, Lactated) 1,000 mls @ 500 mls/hr IV ASDIRECTED [facility] [place] Phytonadione 5 mg/ Sodium (Chloride) 50.5 mls @ 101 mls/hr IV NOW ONE Stop: 11/24/20 16:29 Last Admin: 11/24/20 16:35 Dose: 101 mls/hr Documented by: Lactated Ringer's (Ringers, Lactated) 1,000 mls @ 999 mls/hr IV ASDIRECTED [facility] [place] Stop: 11/24/20 20:31 Last Admin: 11/24/20 19:31 Dose: 999 mls/hr Documented by: Lactated Ringer's (Ringers, Lactated) 1,000 mls @ 250 mls/hr IV ASDIRECTED [facility] [place] Stop: 11/25/20 00:59 Last Admin: 11/24/20 20:55 Dose: 250 mls/hr Documented by: Lactated Ringer's (Ringers, Lactated) 1,000 mls @ 500 mls/hr IV ONETIME ONE Stop: 11/25/20 01:36 Last Admin: 11/24/20 23:50 Dose: 500 mls/hr Documented by: Iopamidol (Iopamidol 612 Mg/Ml 500 Ml Multipack Bottle) 150 ml IV ONETIME ONE Stop: 11/24/20 10:55 Last Admin: 11/24/20 11:16 Dose: 100 ml Documented by: Lisinopril (Lisinopril 20 Mg Tab) 20 mg PO DAILY [facility] [place] Ondansetron HCl (Ondansetron 4 Mg/2 Ml Sdv) 4 mg IVPUSH ONETIME ONE Stop: 11/24/20 09:53 Last Admin: 11/24/20 09:58 Dose: 4 mg Documented by: Sodium Chloride (Sodium Chloride 0.9% 10 Ml Syringe) 10 ml FLUSH ONETIME ONE Stop: 11/24/20 10:55 Last Admin: 11/24/20 11:19 Dose: 10 ml Documented by: - Exam Quality Assessment: Supplemental Oxygen General: Alert, Oriented, Cooperative, No Acute Distress Lungs: Clear to Auscultation, Normal Respiratory Effort Cardiovascular: Irregular Rhythm, Tachycardia GI/Abdominal Exam: Normal Bowel Sounds, Soft, No Distention, Tender (moderate diffuse) Extremities: No Pedal Edema. No: Increased Warmth Skin: Warm, Dry Psy/Mental Status: Alert, Normal Affect - Patient Data Lab Results Last 24 hrs: Laboratory Results - last 24 hr 11/24/20 11/24/20 11/24/20 Range/Units 09:30 09:30 09:30 WBC 12.9 H (4.5-11.0) K/uL RBC 4.28 L (4.30-5.90) M/uL Hgb 12.0 (12.0-15.0) g/dL Hct 37.8 L (40.0-54.0) % MCV 88 (80-98) fL MCH 28 (27-31) pg MCHC 32 (32-36) % Plt Count 380 (150-400) K/uL Neut % (Auto) (36-66) % Lymph % (Auto) (24-44) % [place] % (Auto) (2-6) % Eos % (Auto) (2-4) % Baso % (Auto) (0-1) % PT 25.6 H (9.5-12.0) sec INR 2.39 H (0.80-1.20) Puncture Site ABG pH (7.350-7.450) ABG pCO2 (35.0-42.0) mmHg ABG pO2 (75.0-100.0) mmHg ABG HCO3 (22.0-26.0) mmol/L ABG Total CO2 (23.0-27.0) mmol/L ABG O2 Saturation (95.0-98.0) % ABG O2 Content (15.0-23.0) %vol ABG Base Excess mm/L ABG Hemoglobin (13.5-18.0) g/dL ABG Oxyhemoglobin % ABG Carboxyhemoglobin (0.0-1.6) % ABG Methemoglobin % Martin Test O2 Delivery Device Oxygen Flow Rate L Sodium 139 L (140-148) mmol/L Potassium 4.1 (3.6-5.2) mmol/L Chloride 101 (100-108) mmol/L Carbon Dioxide 27 (21-32) mmol/L Anion Gap 15.1 H (5.0-14.0) mmol/L BUN 32 H D (7-18) mg/dL Creatinine 1.3 (0.8-1.3) mg/dL Est Cr Clr Drug Dosing 39.55 mL/min Estimated GFR (MDRD) 53 L (>60) Glucose 136 H (74-106) mg/dL Lactic Acid (0.4-2.0) mmol/L Calcium 9.4 (8.5-10.1) mg/dL Total Bilirubin 1.1 H D (0.2-1.0) mg/dL AST 38 H D (15-37) U/L ALT 70 D (12-78) U/L Alkaline Phosphatase 189 H D (46-116) U/L Troponin I < 0.017 (0.000-0.056) ng/mL C-Reactive Protein 4.62 H (0.0-0.3) mg/dL Total Protein 7.6 (6.4-8.2) g/dL Albumin 3.1 L (3.4-5.0) g/dL Globulin 4.5 H (2.3-3.5) g/dL Albumin/Globulin Ratio 0.7 L (1.2-2.2) Lipase 135 (73-393) U/L Influenza Type A RNA (NEGATIVE) RSV RNA (INAAT) (NEGATIVE) Influenza Type B RNA (NEGATIVE) SARS-CoV-2 RNA (RONNIE) (NEGATIVE) Blood Type Gel Antibody Screen Crossmatch 11/24/20 11/24/20 11/24/20 Range/Units 12:42 19:30 19:30 WBC 16.4 H (4.5-11.0) K/uL RBC 4.20 L (4.30-5.90) M/uL Hgb 11.7 L (12.0-15.0) g/dL Hct 37.3 L (40.0-54.0) % MCV 89 (80-98) fL MCH 28 (27-31) pg MCHC 31 L (32-36) % Plt Count 335 (150-400) K/uL Neut % (Auto) 80.8 H (36-66) % Lymph % (Auto) 11.5 L (24-44) % [place] % (Auto) 7.6 H (2-6) % Eos % (Auto) 0.0 L (2-4) % Baso % (Auto) 0.1 (0-1) % PT (9.5-12.0) sec INR (0.80-1.20) Puncture Site ABG pH (7.350-7.450) ABG pCO2 (35.0-42.0) mmHg ABG pO2 (75.0-100.0) mmHg ABG HCO3 (22.0-26.0) mmol/L ABG Total CO2 (23.0-27.0) mmol/L ABG O2 Saturation (95.0-98.0) % ABG O2 Content (15.0-23.0) %vol ABG Base Excess mm/L ABG Hemoglobin (13.5-18.0) g/dL ABG Oxyhemoglobin % ABG Carboxyhemoglobin (0.0-1.6) % ABG Methemoglobin % Martin Test O2 Delivery Device Oxygen Flow Rate L Sodium 137 L (140-148) mmol/L Potassium 4.7 (3.6-5.2) mmol/L Chloride 103 (100-108) mmol/L Carbon Dioxide 23 (21-32) mmol/L Anion Gap 15.7 H (5.0-14.0) mmol/L BUN 39 H (7-18) mg/dL Creatinine 1.8 H (0.8-1.3) mg/dL Est Cr Clr Drug Dosing 28.56 mL/min Estimated GFR (MDRD) 36 L (>60) Glucose 90 (74-106) mg/dL Lactic Acid (0.4-2.0) mmol/L Calcium 9.2 (8.5-10.1) mg/dL Total Bilirubin (0.2-1.0) mg/dL AST (15-37) U/L ALT (12-78) U/L Alkaline Phosphatase (46-116) U/L Troponin I 0.019 (0.000-0.056) ng/mL C-Reactive Protein (0.0-0.3) mg/dL Total Protein (6.4-8.2) g/dL Albumin (3.4-5.0) g/dL Globulin (2.3-3.5) g/dL Albumin/Globulin Ratio (1.2-2.2) Lipase (73-393) U/L Influenza Type A RNA Negative (NEGATIVE) RSV RNA (INAAT) Negative (NEGATIVE) Influenza Type B RNA Negative (NEGATIVE) SARS-CoV-2 RNA (RONNIE) Negative (NEGATIVE) Blood Type Gel Antibody Screen Crossmatch 11/24/20 11/24/20 11/24/20 Range/Units 19:30 19:38 19:38 WBC (4.5-11.0) K/uL RBC (4.30-5.90) M/uL Hgb (12.0-15.0) g/dL Hct (40.0-54.0) % MCV (80-98) fL MCH (27-31) pg MCHC (32-36) % Plt Count (150-400) K/uL Neut % (Auto) (36-66) % Lymph % (Auto) (24-44) % [place] % (Auto) (2-6) % Eos % (Auto) (2-4) % Baso % (Auto) (0-1) % PT (9.5-12.0) sec INR (0.80-1.20) Puncture Site Lt brachial ABG pH 7.357 (7.350-7.450) ABG pCO2 41.6 (35.0-42.0) mmHg ABG pO2 71.1 L (75.0-100.0) mmHg ABG HCO3 22.7 (22.0-26.0) mmol/L ABG Total CO2 20.8 L (23.0-27.0) mmol/L ABG O2 Saturation 92.6 L (95.0-98.0) % ABG O2 Content 15.3 (15.0-23.0) %vol ABG Base Excess -2.1 mm/L ABG Hemoglobin 12.1 L (13.5-18.0) g/dL ABG Oxyhemoglobin 90.3 % ABG Carboxyhemoglobin 1.6 (0.0-1.6) % ABG Methemoglobin 0.9 % Martin Test N/a O2 Delivery Device Nasal cannula Oxygen Flow Rate 5.0 L Sodium (140-148) mmol/L Potassium (3.6-5.2) mmol/L Chloride (100-108) mmol/L Carbon Dioxide (21-32) mmol/L Anion Gap (5.0-14.0) mmol/L BUN (7-18) mg/dL Creatinine (0.8-1.3) mg/dL Est Cr Clr Drug Dosing mL/min Estimated GFR (MDRD) (>60) Glucose (74-106) mg/dL Lactic Acid 1.4 (0.4-2.0) mmol/L Calcium (8.5-10.1) mg/dL Total Bilirubin (0.2-1.0) mg/dL AST (15-37) U/L ALT (12-78) U/L Alkaline Phosphatase (46-116) U/L Troponin I (0.000-0.056) ng/mL C-Reactive Protein (0.0-0.3) mg/dL Total Protein (6.4-8.2) g/dL Albumin (3.4-5.0) g/dL Globulin (2.3-3.5) g/dL Albumin/Globulin Ratio (1.2-2.2) Lipase (73-393) U/L Influenza Type A RNA (NEGATIVE) RSV RNA (INAAT) (NEGATIVE) Influenza Type B RNA (NEGATIVE) SARS-CoV-2 RNA (RONNIE) (NEGATIVE) Blood Type B POSITIVE Gel Antibody Screen Negative Crossmatch See Detail 11/24/20 11/25/20 11/25/20 Range/Units 23:20 01:08 04:10 WBC (4.5-11.0) K/uL RBC (4.30-5.90) M/uL Hgb 12.1 11.1 L (12.0-15.0) g/dL Hct (40.0-54.0) % MCV (80-98) fL MCH (27-31) pg MCHC (32-36) % Plt Count (150-400) K/uL Neut % (Auto) (36-66) % Lymph % (Auto) (24-44) % [place] % (Auto) (2-6) % Eos % (Auto) (2-4) % Baso % (Auto) (0-1) % PT 19.1 H (9.5-12.0) sec INR 1.77 H (0.80-1.20) Puncture Site ABG pH (7.350-7.450) ABG pCO2 (35.0-42.0) mmHg ABG pO2 (75.0-100.0) mmHg ABG HCO3 (22.0-26.0) mmol/L ABG Total CO2 (23.0-27.0) mmol/L ABG O2 Saturation (95.0-98.0) % ABG O2 Content (15.0-23.0) %vol ABG Base Excess mm/L ABG Hemoglobin (13.5-18.0) g/dL ABG Oxyhemoglobin % ABG Carboxyhemoglobin (0.0-1.6) % ABG Methemoglobin % Martin Test O2 Delivery Device Oxygen Flow Rate L Sodium (140-148) mmol/L Potassium (3.6-5.2) mmol/L Chloride (100-108) mmol/L Carbon Dioxide (21-32) mmol/L Anion Gap (5.0-14.0) mmol/L BUN (7-18) mg/dL Creatinine (0.8-1.3) mg/dL Est Cr Clr Drug Dosing mL/min Estimated GFR (MDRD) (>60) Glucose (74-106) mg/dL Lactic Acid (0.4-2.0) mmol/L Calcium (8.5-10.1) mg/dL Total Bilirubin (0.2-1.0) mg/dL AST (15-37) U/L ALT (12-78) U/L Alkaline Phosphatase (46-116) U/L Troponin I (0.000-0.056) ng/mL C-Reactive Protein (0.0-0.3) mg/dL Total Protein (6.4-8.2) g/dL Albumin (3.4-5.0) g/dL Globulin (2.3-3.5) g/dL Albumin/Globulin Ratio (1.2-2.2) Lipase (73-393) U/L Influenza Type A RNA (NEGATIVE) RSV RNA (INAAT) (NEGATIVE) Influenza Type B RNA (NEGATIVE) SARS-CoV-2 RNA (RONNIE) (NEGATIVE) Blood Type Gel Antibody Screen Crossmatch 11/25/20 11/25/20 Range/Units 04:10 04:10 WBC 19.2 H (4.5-11.0) K/uL RBC 4.13 L (4.30-5.90) M/uL Hgb 11.8 L (12.0-15.0) g/dL Hct 36.5 L (40.0-54.0) % MCV 88 (80-98) fL MCH 29 (27-31) pg MCHC 32 (32-36) % Plt Count 328 (150-400) K/uL Neut % (Auto) 81.6 H (36-66) % Lymph % (Auto) 8.4 L (24-44) % [place] % (Auto) 9.8 H (2-6) % Eos % (Auto) 0.0 L (2-4) % Baso % (Auto) 0.2 (0-1) % PT (9.5-12.0) sec INR (0.80-1.20) Puncture Site ABG pH (7.350-7.450) ABG pCO2 (35.0-42.0) mmHg ABG pO2 (75.0-100.0) mmHg ABG HCO3 (22.0-26.0) mmol/L ABG Total CO2 (23.0-27.0) mmol/L ABG O2 Saturation (95.0-98.0) % ABG O2 Content (15.0-23.0) %vol ABG Base Excess mm/L ABG Hemoglobin (13.5-18.0) g/dL ABG Oxyhemoglobin % ABG Carboxyhemoglobin (0.0-1.6) % ABG Methemoglobin % Martin Test O2 Delivery Device Oxygen Flow Rate L Sodium 140 (140-148) mmol/L Potassium 3.7 (3.6-5.2) mmol/L Chloride 103 (100-108) mmol/L Carbon Dioxide 25 (21-32) mmol/L Anion Gap 11.7 (5.0-14.0) mmol/L BUN 40 H (7-18) mg/dL Creatinine 1.7 H (0.8-1.3) mg/dL Est Cr Clr Drug Dosing 30.24 mL/min Estimated GFR (MDRD) 39 L (>60) Glucose 90 (74-106) mg/dL Lactic Acid (0.4-2.0) mmol/L Calcium 8.7 (8.5-10.1) mg/dL Total Bilirubin 1.7 H D (0.2-1.0) mg/dL AST 45 H (15-37) U/L ALT 59 (12-78) U/L Alkaline Phosphatase 106 (46-116) U/L Troponin I (0.000-0.056) ng/mL C-Reactive Protein (0.0-0.3) mg/dL Total Protein 6.2 L (6.4-8.2) g/dL Albumin 2.3 L (3.4-5.0) g/dL Globulin 3.9 H (2.3-3.5) g/dL Albumin/Globulin Ratio 0.6 L (1.2-2.2) Lipase (73-393) U/L Influenza Type A RNA (NEGATIVE) RSV RNA (INAAT) (NEGATIVE) Influenza Type B RNA (NEGATIVE) SARS-CoV-2 RNA (RONNIE) (NEGATIVE) Blood Type Gel Antibody Screen Crossmatch Result Diagrams: 11/25/20 04:10 11/25/20 04:10 Cornelius Results Last 24 hrs: Microbiology 11/24/20 22:00 Stool Occult Blood (CORNELIUS) - Final Stool / Feces Sepsis Event Note - Evaluation Sepsis Screening Result: Severe Sepsis Risk - Focused Exam Vital Signs: Vital Signs Temp Pulse Resp BP BP Pulse Ox 11/25/20 09:00 20 118/53 L 92 L 11/25/20 07:48 36.6 C 20 112/54 L 91 L 11/25/20 06:00 25 H 109/58 L 92 L 11/25/20 05:00 25 H 111/51 L 95 11/25/20 04:00 36.8 C 22 H 104/50 L 94 L 11/25/20 03:40 25 H 101/52 L 98 11/25/20 03:15 25 H 103/48 L 94 L 11/25/20 03:00 21 H 96/50 L 95 11/25/20 02:40 23 H 80/53 L 95 11/25/20 02:00 22 H 81/43 L 94 L 11/25/20 01:00 28 H 89/45 L 93 L 11/25/20 00:00 36.6 C 26 H 93/47 L 100 11/24/20 23:00 24 H 86/47 L 98 11/24/20 22:00 106 H 19 99/63 94 L - Problem List Review Problem List Initiated/Reviewed/Updated: Yes - My Orders Last 24 Hours: My Active Orders 11/25/20 19:00 Meropenem [Merrem] 1 gm Sodium Chloride 0.9% [Normal Saline] 100 ml IV Q8H 11/26/20 05:00 CBC W/O DIFF,HEMOGRAM [HEME] Timed (1) COMPREHENSIVE METABOLIC PN,CMP [CHEM] Timed INR,PT,PROTHROMBIN TIME [COAG] Timed - Plan Plan:: ASSESSMENT AND PLAN - Acute cholecystitis with septic shock-patient is now requiring vasopressor support with norepinephrine. White blood cell count is higher. Having moderate pain. INR is better but still mildly elevated at 1.7. Surgical intervention is planned today. -Antibiotic coverage with meropenem -Symptomatic management of pain and nausea -IV fluids -Surgical intervention today with Dr. Priest Chronic atrial fibrillation-he is anticoagulated with warfarin but did receive 5 mg of vitamin K yesterday. INR still slightly elevated but should continue to trend down. -Hold warfarin -INR in the morning -Metoprolol versus digoxin if rate control as needed -Cardiac monitoring Hematochezia-CT did not suggest any abnormalities of the intestines that would explain this. There could be some colitis related to the inflammation/infection from the cholecystitis. Hemoglobin has been stable. -Management as above -Serial hemoglobins Maintenance issues - -DVT prophylaxis-mechanical -GI prophylaxis-not indicated -Nutrition-nothing by mouth Disposition -I anticipate discharge home after the hospital stay Marco Flores M.D.
[2020-11-25] MEDS: Ondansetron 4 MG/2 ML SDV IVPUSH PRN (09:25)
--- NOTE | 2020-11-25 10:28 | CR ---
CHEST: Portable 11/24/2020 at 9:48 AM CLINICAL HISTORY:Mild SOB COMPARISON:2016 FINDINGS: Cardiac silhouette is enlarged. This may be due to patient position and less than optimal inspiration. Pulmonary vascularity is normal. There are atherosclerotic changes in the aorta.. No infiltrate or effusion is identified Impression: Cardiomegaly may be exaggerated by technique. No acute cardiopulmonary process
[2020-11-25] MEDS ORDERED: fentaNYL 250 MCG/5 ML SDV ONE (10:48)
[2020-11-25] MEDS ORDERED: Glycopyrrolate 0.2 MG/ML 5 ML MDV ONE (10:49)
[2020-11-25] MEDS ORDERED: Dexamethasone 4 MG/ML SDV ONE (10:49)
[2020-11-25] MEDS ORDERED: Succinylcholine 200 MG/10 ML MDV ONE (10:49)
[2020-11-25] MEDS ORDERED: Propofol 200 MG/20 ML SDV ONE (10:49)
[2020-11-25] MEDS ORDERED: Neostigmine Methylsulfate 1 MG/ML 5 ML Syringe ONE (10:49)
[2020-11-25] MEDS ORDERED: Rocuronium 50 MG/5 ML Vial ONE (10:49)
[2020-11-25] MEDS ORDERED: Ondansetron 4 MG/2 ML SDV ONE (10:49)
[2020-11-25] MEDS ORDERED: Bupivacaine 0.5%/EPINEPHrine 1:200,000 50 ML MDV ONE (11:36)
[2020-11-25] MEDS: Morphine 2 MG/ML SYRINGE IV PRN (13:23)
[2020-11-25] MEDS ORDERED: Lactated Ringers 1,000 ML ONE (13:49)
[2020-11-25] MEDS ORDERED: Sodium Chloride 0.9% 10 ML ONE (14:04)
[2020-11-25] MEDS ORDERED: Phenylephrine 1% 10 MG/ML SDV ONE (14:04)
--- NOTE | 2020-11-25 15:01 | PCM.EKG ---
#1 Interpretation EKG Date: 11/24/20 Time: 20:10 Rhythm: A-Fib Rate (Beats/Min): 106 [place]: LAD-Left [place] Deviation (LAFB) P-Wave: Variable QRS: Normal ST-T: Normal QT: Normal Comparison: No Change (No change from EKG 05/11/2016)
[2020-11-25] MEDS ORDERED: Digoxin 500 MCG/2 ML Amp IVPUSH ONE (16:00)
[2020-11-25] MEDS: Meropenem 1 GM in Sodium Chloride 0.9% 100 ML IV SCH (17:16)
[2020-11-25] MEDS ORDERED: Meropenem 1 GM in Sodium Chloride 0.9% 100 ML IV SCH ×4 (18:00)
[2020-11-25] MEDS ORDERED: Haloperidol Lactate 5 MG/ML SDV ONE (20:33)
[2020-11-25] MEDS ORDERED: Haloperidol Lactate 5 MG/ML SDV IVPUSH PRN (20:38)
[2020-11-25] MEDS: Haloperidol Lactate 5 MG/ML SDV IVPUSH PRN (21:30)
[2020-11-25] MEDS: atorvaSTATin 10 MG Tab PO SCH (21:39)
[2020-11-25] MEDS: ALPRAZolam 0.5 MG Tab PO SCH (21:39)
[2020-11-26] MEDS: Sodium Chloride 0.9% 1,000 ML IV SCH ×2 (01:27→09:59)
[2020-11-26] MEDS: Pantoprazole 40 MG Vial IVPUSH SCH (02:05)
[2020-11-26] MEDS: Meropenem 1 GM in Sodium Chloride 0.9% 100 ML IV SCH ×3 (02:05→17:14)
[2020-11-26] MEDS: Norepinephrine 4 MG in Dextrose 5% in Water 246 ML IV SCH ×4 (02:07→15:05)
[2020-11-26] MEDS: Haloperidol Lactate 5 MG/ML SDV IVPUSH PRN (04:45)
--- NOTE | 2020-11-26 09:28 | OR ---
DATE OF PROCEDURE: 11/25/2020 SURGEON: Alonso Priest MD PROCEDURES: 1. Bilateral transversus abdominis plane blocks. 2. Bilateral rectus sheath blocks. COMPLICATIONS: None. FIRST HELPER: None. RISKS: Risks, benefits, alternatives, and limitations including, but not limited to infection, bleeding, injury to abdominal structures were explained to the patient who wished to proceed. PROCEDURE IN DETAIL: The patient was placed in supine position. Right transversus plane was identified first. This was accessed using a 21-gauge needle. This was injected 20% of the solution under direct visualization. The left side was then performed in a same manner, same fashion, same technique in the same sequence using the same equipment. The rectus sheath on the right was then addressed first. This was accessed also using 13 megahertz ultrasound probe. The 20% of the solution was injected and this was then repeated on the other side, also injected under direct visualization. 20% of the solution was used respectively on each of the 4 locations. At no point was the needle blindly advanced. The patient tolerated the procedure well. Alonso Priest MD /[id number]
[2020-11-26] MEDS: Dorzolamide/Timolol 2%-0.5% Ophth Soln 10 ML Bottle EYEBOTH SCH ×2 (09:31→20:50)
[2020-11-26] MEDS: Brimonidine 0.2% Ophth Soln 5 ML Bottle EYEBOTH SCH (09:31)
[2020-11-26] MEDS: PARoxetine 20 MG Tab PO SCH (09:31)
[2020-11-26] MEDS: Fluticasone Propionate Nasal Spray 16 GM Bottle NASBOTH SCH ×2 (09:32→20:50)
[2020-11-26] MEDS: VERIFY SCOP PATCH TOP SCH (09:59)
--- NOTE | 2020-11-26 10:14 | PCM.PN ---
- General Info Date of Service: 11/26/20 Subjective Update: Overnight the patient had some difficulty with agitation as well as tachycardia with his atrial fibrillation. Both of these are better this morning. He is alert and interactive and not agitated. Heart rate is in the 90s. No fevers. White count is coming down. Culture from [facility] cholecystic fluid is pending but no organisms were seen on the Gram stain. Kidney function stable. Still requiring norepinephrine but blood pressure is slowly improving. Functional Status: Reports: Pain Controlled, Tolerating Diet - Review of Systems General: Denies: Fever Gastrointestinal: Reports: Abdominal Pain - Patient Data Vitals - Most Recent: Last Vital Signs Temp 36.6 C 11/26/20 10:00 Pulse 126 H 11/25/20 15:45 Resp 21 H 11/26/20 10:00 BP 128/54 L 11/26/20 10:00 Pulse Ox 95 11/26/20 10:00 Weight - Most Recent: 113.398 kg I&O - Last 24 Hours: Intake & Output 11/25/20 11/26/20 11/26/20 22:59 06:59 14:59 Intake Total 1790 2258 Output Total 32% 78 Balance 147; 1494 @ Lab Results Last 24 Hours: Laboratory Results - last 24 hr 11/26/20 11/26/20 11/26/20 Range/Units 05:25 05:25 05:25 WBC 14.2 H (4.5-11.0) K/uL RBC 4.04 L (4.30-5.90) M/uL Hgb 11.2 L (12.0-15.0) g/dL Hct 35.9 L (40.0-54.0) % MCV 89 (80-98) fL MCH 28 (27-31) pg MCHC 31 L (32-36) % Plt Count 326 (150-400) K/uL PT 14.7 H (9.5-12.0) sec INR 1.36 H (0.80-1.20) Sodium 142 (140-148) mmol/L Potassium 3.8 (3.6-5.2) mmol/L Chloride 107 (100-108) mmol/L Carbon Dioxide 23 (21-32) mmol/L Anion Gap 12.4 (5.0-14.0) mmol/L BUN 45 H (7-18) mg/dL Creatinine 1.7 H (0.8-1.3) mg/dL Est Cr Clr Drug Dosing 30.24 mL/min Estimated GFR (MDRD) 39 L (>60) Glucose 151 H (74-106) mg/dL Calcium 8.1 L (8.5-10.1) mg/dL Total Bilirubin 1.1 H (0.2-1.0) mg/dL AST 48 H (15-37) U/L ALT 51 (12-78) U/L Alkaline Phosphatase 92 (46-116) U/L Total Protein 6.0 L (6.4-8.2) g/dL Albumin 2.1 L (3.4-5.0) g/dL Globulin 3.9 H (2.3-3.5) g/dL Albumin/Globulin Ratio 0.5 L (1.2-2.2) Cornelius Results Last 24 Hours: Microbiology 11/24/20 19:38 Aerobic Blood Culture - Preliminary Blood - Artery NO GROWTH AFTER 1 DAY Anaerobic Blood Culture - Preliminary NO GROWTH AFTER 1 DAY 11/24/20 19:30 Aerobic Blood Culture - Preliminary Blood - Arm, Left NO GROWTH AFTER 1 DAY Anaerobic Blood Culture - Preliminary NO GROWTH AFTER 1 DAY 11/25/20 14:15 Gram Stain - Final Abdominal Fluid - Aspirate Med Orders - Current: Current Medications Alprazolam (Alprazolam 0.5 Mg Tab) 0.5 mg PO BEDTIME [facility] Last Admin: 11/25/20 21:39 Dose: 0.5 mg Documented by: Atorvastatin Calcium (Atorvastatin 10 Mg Tab) 10 mg PO BEDTIME [facility] Last Admin: 11/25/20 21:39 Dose: 10 mg Documented by: Brimonidine Tartrate (Brimonidine 0.2% Ophth Soln 5 Ml Bottle) 0 ml EYEBOTH DAILY [facility] Last Admin: 11/26/20 09:31 Dose: 1 drop Documented by: Diphenhydramine HCl (Diphenhydramine 25 Mg Cap) 25 - 50 mg PO Q4H PRN PRN Reason: ITCHING Dorzolamide/Timolol (Dorzolamide/Timolol 2%-0.5% Ophth Soln 10 Ml Bottle) 0 ml EYEBOTH BID [facility] Last Admin: 11/26/20 09:31 Dose: 1 drop Documented by: Fentanyl (Fentanyl 100 Mcg/2 Ml Sdv) 10 - 30 mcg IV Q1H PRN PRN Reason: PAIN Last Admin: 11/24/20 17:24 Dose: 10 mcg Documented by: Fluticasone Propionate (Fluticasone Propionate Nasal [place] 16 Gm Bottle) 0 gm NASBOTH BID [facility] Last Admin: 11/26/20 09:32 Dose: 1 dose Documented by: Haloperidol Lactate (Haloperidol Lactate 5 Mg/Ml Sdv) 5 mg IVPUSH Q4H PRN PRN Reason: Agitation Last Admin: 11/26/20 04:45 Dose: 5 mg Documented by: Promethazine HCl 12.5 mg/ (Sodium Chloride) 50.5 mls @ 202 mls/hr IV Q8H PRN PRN Reason: NAUSEA Last Admin: 11/25/20 11:33 Dose: 202 mls/hr Documented by: Norepinephrine Bitartrate 4 mg (/ Dextrose/Water) 250 mls @ 7.5 mls/hr IV TITRATE [facility]; Protocol Last Titration: 11/26/20 10:03 Dose: 3 mcg/min, 11.25 mls/hr Documented by: Meropenem 1 gm/ Sodium (Chloride) 100 mls @ 200 mls/hr IV Q8H [facility] Last Admin: 11/26/20 10:10 Dose: 200 mls/hr Documented by: Sodium Chloride (Normal Saline) 1,000 mls @ 25 mls/hr IV ASDIRECTED [facility] Morphine Sulfate (Morphine 2 Mg/Ml Syringe) 1 - 3 mg IV Q1H PRN PRN Reason: PAIN Last Admin: 11/25/20 13:23 Dose: 1 mg Documented by: Nicotine (Nicotine 14 Mg/24 Hr Patch) 14 mg TRDERM DAILY PRN PRN Reason: SMOKING CESSATION Verify Scop Patch 0 each TOP DAILY [facility] Last Admin: 11/26/20 09:59 Dose: Not Given Documented by: Ondansetron HCl (Ondansetron 4 Mg/2 Ml Sdv) 4 mg IVPUSH Q8H PRN PRN Reason: Nausea Last Admin: 11/25/20 09:25 Dose: 4 mg Documented by: Paroxetine HCl (Paroxetine 20 Mg Tab) 20 mg PO DAILY [facility] Last Admin: 11/26/20 09:31 Dose: 20 mg Documented by: Discontinued Medications Amlodipine Besylate (Amlodipine 5 Mg Tab) 5 mg PO DAILY [facility] Bupivacaine HCl/Epinephrine Bitart (Bupivacaine 0.5%/Epinephrine 1:200,000 50 Ml Mdv) Confirm Administered Dose 50 ml .ROUTE .STK-MED ONE Stop: 11/25/20 11:37 Last Admin: 11/25/20 14:42 Dose: 20 ml Documented by: Ropivacaine 55 ml/Dexamethasone 8 mg/Epinephrine HCl 0.4 mg/ Sodium Chloride 22.6 ml 0 ml NERVRT ASDIRECTED [facility] Last Admin: 11/25/20 14:25 Dose: 80 syringe Documented by: Dexamethasone (Dexamethasone 4 Mg/Ml Sdv) Confirm Administered Dose 4 mg .ROUTE .STK-MED ONE Stop: 11/25/20 10:50 Digoxin (Digoxin 500 Mcg/2 Ml Amp) 250 mcg IVPUSH ONETIME ONE Stop: 11/25/20 16:01 Last Admin: 11/25/20 15:44 Dose: 250 mcg Documented by: Diphenhydramine HCl (Diphenhydramine 50 Mg/Ml Sdv) 25 - 50 mg IV Q4H PRN PRN Reason: ITCHING Fentanyl (Fentanyl 250 Mcg/5 Ml Sdv) Confirm Administered Dose 250 mcg .ROUTE .STK-MED ONE Stop: 11/25/20 10:49 Fluticasone Propionate (Fluticasone Propionate Nasal [place] 16 Gm Bottle) 0 gm NASBOTH BID [facility] Last Admin: 11/24/20 21:45 Dose: 1 spray Documented by: Glycopyrrolate (Glycopyrrolate 0.2 Mg/Ml 5 Ml Mdv) Confirm Administered Dose 1 mg .ROUTE .STK-MED ONE Stop: 11/25/20 10:50 Haloperidol Lactate (Haloperidol Lactate 5 Mg/Ml Sdv) Confirm Administered Dose 5 mg .ROUTE .STK-MED ONE Stop: 11/25/20 20:34 Last Admin: 11/25/20 20:59 Dose: Not Given Documented by: Haloperidol Lactate (Haloperidol Lactate 5 Mg/Ml Sdv) 2.5 mg IVPUSH Q4H PRN PRN Reason: Agitation Last Admin: 11/25/20 20:30 Dose: 2.5 mg Documented by: Hydrochlorothiazide (Hydrochlorothiazide 25 Mg Tab) 25 mg PO DAILY [facility] Hydromorphone HCl (Hydromorphone 0.5 Mg/0.5 Ml Syringe) 0.5 mg IVPUSH ONETIME ONE Stop: 11/24/20 08:51 Last Admin: 11/24/20 09:50 Dose: 0.5 mg Documented by: Hydromorphone HCl (Hydromorphone 0.5 Mg/0.5 Ml Syringe) 0.5 mg IVPUSH ONETIME ONE Stop: 11/24/20 10:38 Last Admin: 11/24/20 10:58 Dose: 0.5 mg Documented by: Lactated Ringer's (Ringers, Lactated) 1,000 mls @ 1,000 mls/hr IV BOLUS ONE Stop: 11/24/20 09:49 Last Admin: 11/24/20 09:50 Dose: 1,000 mls/hr Documented by: Sodium Chloride (Normal Saline) 85 mls @ 3.5 mls/sec IV ASDIRECTED [facility] Stop: 11/24/20 11:01 Last Admin: 11/24/20 11:19 Dose: 2.5 mls/sec Documented by: Lactated Ringer's (Ringers, Lactated) 1,000 mls @ 500 mls/hr IV ASDIRECTED [facility] Sodium Chloride (Normal Saline) 1,000 mls @ 125 mls/hr IV ASDIRECTED [facility] Last Admin: 11/26/20 09:59 Dose: 125 mls/hr Documented by: Phytonadione 5 mg/ Sodium (Chloride) 50.5 mls @ 101 mls/hr IV NOW ONE Stop: 11/24/20 16:29 Last Admin: 11/24/20 16:35 Dose: 101 mls/hr Documented by: Ertapenem 1 gm/ Sodium (Chloride) 100 mls @ 200 mls/hr IV Q24H [facility] Last Admin: 11/24/20 19:42 Dose: 200 mls/hr Documented by: Lactated Ringer's (Ringers, Lactated) 1,000 mls @ 999 mls/hr IV ASDIRECTED [facility] Stop: 11/24/20 20:31 Last Admin: 11/24/20 19:31 Dose: 999 mls/hr Documented by: Lactated Ringer's (Ringers, Lactated) 1,000 mls @ 250 mls/hr IV ASDIRECTED [facility] Stop: 11/25/20 00:59 Last Admin: 11/24/20 20:55 Dose: 250 mls/hr Documented by: Lactated Ringer's (Ringers, Lactated) 1,000 mls @ 500 mls/hr IV ONETIME ONE Stop: 11/25/20 01:36 Last Admin: 11/24/20 23:50 Dose: 500 mls/hr Documented by: Lactated Ringer's (Ringers, Lactated) Confirm Administered Dose 1,000 mls @ as directed .ROUTE .STK-MED ONE Stop: 11/25/20 13:50 Sodium Chloride (Normal Saline) Confirm Administered Dose 10 mls @ as directed .ROUTE .STK-MED ONE Stop: 11/25/20 14:05 Iopamidol (Iopamidol 612 Mg/Ml 500 Ml Multipack Bottle) 150 ml IV ONETIME ONE Stop: 11/24/20 10:55 Last Admin: 11/24/20 11:16 Dose: 100 ml Documented by: Lisinopril (Lisinopril 20 Mg Tab) 20 mg PO DAILY [facility] Neostigmine Methylsulfate (Neostigmine Methylsulfate 1 Mg/Ml 5 Ml Syringe) Confirm Administered Dose 5 mg .ROUTE .STK-MED ONE Stop: 11/25/20 10:50 Ondansetron HCl (Ondansetron 4 Mg/2 Ml Sdv) 4 mg IVPUSH ONETIME ONE Stop: 11/24/20 09:53 Last Admin: 11/24/20 09:58 Dose: 4 mg Documented by: Ondansetron HCl (Ondansetron 4 Mg/2 Ml Sdv) Confirm Administered Dose 4 mg .ROUTE .STK-MED ONE Stop: 11/25/20 10:50 Pantoprazole Sodium (Pantoprazole 40 Mg Vial) 40 mg IVPUSH Q12H [facility] Last Admin: 11/26/20 02:05 Dose: 40 mg Documented by: Phenylephrine HCl (Phenylephrine 1% 10 Mg/Ml Sdv) Confirm Administered Dose 10 mg .ROUTE .STK-MED ONE Stop: 11/25/20 14:05 Propofol (Propofol 200 Mg/20 Ml Sdv) Confirm Administered Dose 200 mg .ROUTE .STK-MED ONE Stop: 11/25/20 10:50 Rocuronium [place] (Rocuronium 50 Mg/5 Ml Vial) Confirm Administered Dose 50 mg .ROUTE .STK-MED ONE Stop: 11/25/20 10:50 Scopolamine (Scopolamine 1.5 Mg Transdermal Patch) 1.5 mg TOP Q72H PRN PRN Reason: NAUSEA Last Admin: 11/25/20 10:00 Dose: 1.5 mg Documented by: Sodium Chloride (Sodium Chloride 0.9% 10 Ml Syringe) 10 ml FLUSH ONETIME ONE Stop: 11/24/20 10:55 Last Admin: 11/24/20 11:19 Dose: 10 ml Documented by: Succinylcholine Chloride (Succinylcholine 200 Mg/10 Ml Mdv) Confirm Administered Dose 200 mg .ROUTE .STK-MED ONE Stop: 11/25/20 10:50 - Exam Quality Assessment: Supplemental Oxygen Urinary Catheter Total Time: 0Days 18Hours General: Alert, Oriented, Cooperative, No Acute Distress HEENT: Pupils Equal Neck: Supple Lungs: Clear to Auscultation, Normal Respiratory Effort Cardiovascular: Regular Rate, Irregular Rhythm GI/Abdominal Exam: Soft, No Distention Extremities: No Pedal Edema. No: Increased Warmth Skin: Warm, Dry Psy/Mental Status: Alert, Normal Affect - Patient Data Lab Results Last 24 hrs: Laboratory Results - last 24 hr 11/26/20 11/26/20 11/26/20 Range/Units 05:25 05:25 05:25 WBC 14.2 H (4.5-11.0) K/uL RBC 4.04 L (4.30-5.90) M/uL Hgb 11.2 L (12.0-15.0) g/dL Hct 35.9 L (40.0-54.0) % MCV 89 (80-98) fL MCH 28 (27-31) pg MCHC 31 L (32-36) % Plt Count 326 (150-400) K/uL PT 14.7 H (9.5-12.0) sec INR 1.36 H (0.80-1.20) Sodium 142 (140-148) mmol/L Potassium 3.8 (3.6-5.2) mmol/L Chloride 107 (100-108) mmol/L Carbon Dioxide 23 (21-32) mmol/L Anion Gap 12.4 (5.0-14.0) mmol/L BUN 45 H (7-18) mg/dL Creatinine 1.7 H (0.8-1.3) mg/dL Est Cr Clr Drug Dosing 30.24 mL/min Estimated GFR (MDRD) 39 L (>60) Glucose 151 H (74-106) mg/dL Calcium 8.1 L (8.5-10.1) mg/dL Total Bilirubin 1.1 H (0.2-1.0) mg/dL AST 48 H (15-37) U/L ALT 51 (12-78) U/L Alkaline Phosphatase 92 (46-116) U/L Total Protein 6.0 L (6.4-8.2) g/dL Albumin 2.1 L (3.4-5.0) g/dL Globulin 3.9 H (2.3-3.5) g/dL Albumin/Globulin Ratio 0.5 L (1.2-2.2) Result Diagrams: 11/26/20 05:25 11/26/20 05:25 Cornelius Results Last 24 hrs: Microbiology 11/24/20 19:38 Aerobic Blood Culture - Preliminary Blood - Artery NO GROWTH AFTER 1 DAY Anaerobic Blood Culture - Preliminary NO GROWTH AFTER 1 DAY 11/24/20 19:30 Aerobic Blood Culture - Preliminary Blood - Arm, Left NO GROWTH AFTER 1 DAY Anaerobic Blood Culture - Preliminary NO GROWTH AFTER 1 DAY 11/25/20 14:15 Gram Stain - Final Abdominal Fluid - Aspirate Sepsis Event Note - Evaluation Sepsis Screening Result: Severe Sepsis Risk - Focused Exam Vital Signs: Vital Signs Temp Resp BP Pulse Ox 11/26/20 10:00 36.6 C 21 H 128/54 L 95 11/26/20 09:00 18 96/65 94 L 11/26/20 08:00 36.6 C 24 H 125/50 L 96 11/26/20 07:00 23 H 115/57 L 92 L 11/26/20 06:00 14 116/55 L 90 L 11/26/20 05:00 22 H 103/61 94 L 11/26/20 04:00 14 92/41 L 94 L 11/26/20 03:00 14 91/44 L 93 L 11/26/20 02:00 16 94/43 L 95 11/26/20 01:00 17 94/43 L 95 11/26/20 00:00 16 89/40 L 90 L 11/25/20 23:37 19 90/45 L 90 L 11/25/20 23:00 20 82/40 L 90 L - Problem List Review Problem List Initiated/Reviewed/Updated: Yes - My Orders Last 24 Hours: My Active Orders 11/25/20 18:00 Meropenem [Merrem] 1 gm Sodium Chloride 0.9% [Normal Saline] 100 ml IV Q8H 11/25/20 21:41 Haloperidol Lactate [Haldol] 5 mg IVPUSH Q4H PRN 11/26/20 10:15 Sodium Chloride 0.9% [Normal Saline] 1,000 ml IV ASDIRECTED 11/27/20 05:00 CBC W/O DIFF,HEMOGRAM [HEME] Timed (1) COMPREHENSIVE METABOLIC PN,CMP [CHEM] Timed - Plan Plan:: ASSESSMENT AND PLAN - Acute cholecystitis with septic shock-patient still requiring vasopressor support with norepinephrine. White blood cell count is better today. Did well with surgery yesterday. Culture is pending. -Continue norepinephrine, wean as able -Antibiotic coverage with meropenem -Follow-up culture from surgery yesterday -Symptomatic management of pain and nausea -Saline lock IV -Surgical follow-up per Dr. Priest Chronic atrial fibrillation-he was anticoagulated with warfarin but INR has been reversed. -Hold warfarin today, plan to restart tomorrow -INR in the morning -Metoprolol versus digoxin if rate control as needed -Cardiac monitoring Hematochezia-CT did not suggest any abnormalities of the intestines that would explain this. There could be some colitis related to the inflammation/infection from the cholecystitis. Hemoglobin has remained stable and this appears to have resolved. -Management as above -Hemoglobin in the morning Maintenance issues - -DVT prophylaxis-mechanical -GI prophylaxis-not indicated -Nutrition-regular diet Disposition -I anticipate discharge home after the hospital stay Mraco Flores M.D.
[2020-11-26] MEDS ORDERED: Sodium Chloride 0.9% 1,000 ML IV SCH (10:15)
--- NOTE | 2020-11-26 10:43 | OR ---
DATE OF PROCEDURE: 11/25/2020 SURGEON: Alonso Priest MD PROCEDURES: 1. Laparoscopic cholecystectomy. 2. Drainage of right upper quadrant peritonitis type fluid, which was dark in nature, cultured ([id number]). FINDINGS: Necrotic gallbladder. COMPLICATIONS: None. AUTOMOTIVE FUEL SYSTEMS CONVERTER: None. ANESTHETIC: General/local. RISKS: Risks, benefits, alternatives, and limitations including, but not limited to infection, bleeding, perforation, injury to abdominal structures, common bile duct injury, cystic duct leaks and other risks not listed here were explained to the patient and he wished to proceed. PROCEDURE IN DETAIL: The patient was placed in supine position. Supraumbilical curvilinear incision was made. A Veress needle was used to enter the abdomen without abnormality. A drop test was performed without abnormality. This was followed by an Optiview trocar. An additional 10 and 2 5 mm ports were entered under direct visualization. Gallbladder was identified and noted to be significantly necrotic. This was elevated in a classic fashion with the gallbladder retracted cephalad, the infundibulum retracted inferolaterally. Using blunt dissection, a "clear view" of the gallbladder was obtained with a single pulsatile structure in the gallbladder, a single non-pulsatile structure in the gallbladder. Of note, though the tissue in the surrounding area was severely necrotic precluding the normal visualization and characterization of typical anatomical structures. Nonetheless, the cystic duct was clipped and the artery was transected. The remaining 1/3rd of the gallbladder was removed off the gallbladder bed. This was delivered through the superior port without difficulty. The gallbladder bed was inspected for abnormal bleeding. None was noted. The abdomen was re-insufflated. There was no evidence of other abnormality. Pressure was dropped to 7. No venous bleeding. The liquid was then removed with suction irrigation. A 10 flat Kemal-Hernandez drain was placed in the right abdomen in proximity to the liver. The air was removed. The wounds were closed with 3-0 Vicryl and 4-0 Vicryl in interrupted running fashion after irrigating them and the patient tolerated the procedure well. Of note, initially during entering this procedure, this appeared to be a partially or completely ruptured gallbladder as there was fluid in the right upper quadrant and right lower quadrant. This was also cultured. Alonso Priest MD /[id number]
--- NOTE | 2020-11-26 10:50 | PN ---
DATE OF SERVICE: 11/26/2020 SUBJECTIVE: The patient is greatly improved overnight. No nausea, vomiting, shortness of breath, or chest pain. OBJECTIVE: VITAL SIGNS: Stable. CARDIOVASCULAR: Regular rhythm and rate. RESPIRATORY: Lungs are clear to auscultation bilaterally. SKIN: Incision is healing well. Kemal-Hernandez output is improving. ASSESSMENT: Status post laparoscopic cholecystectomy. PLAN: All signs and symptoms are improving. Norepinephrine is decreasing. Urine output is improving. Laboratory results are stable. He is afebrile. The patient does have some slight confusion. It is unclear if this is his baseline. We will have discharge planning and see him in the office. Alonso Priest MD /[id number]
[2020-11-26] MEDS: Morphine 2 MG/ML SYRINGE IV PRN (17:41)
[2020-11-26] MEDS ORDERED: Digoxin 125 MCG Tab PO ONE (20:34)
[2020-11-26] MEDS: atorvaSTATin 10 MG Tab PO SCH (20:49)
[2020-11-26] MEDS: ALPRAZolam 0.5 MG Tab PO SCH (20:49)
[2020-11-27] MEDS: Meropenem 1 GM in Sodium Chloride 0.9% 100 ML IV SCH ×3 (01:24→17:36)
[2020-11-27] MEDS: Ondansetron 4 MG/2 ML SDV IVPUSH PRN (03:25)
--- NOTE | 2020-11-27 08:57 | PCM.PN ---
- General Info Date of Service: 11/27/20 Subjective Update: No acute events overnight. He has been weaned off of his norepinephrine. He reports only mild abdominal pain and no nausea. He is tolerating his diet. He has continued to require a small amount of supplemental oxygen. He does have a slight increase in his lower extremity edema. He does not report any shortness of breath. No fevers. Culture still pending. Functional Status: Reports: Pain Controlled, Tolerating Diet - Review of Systems General: Reports: Weakness. Denies: Fever Pulmonary: Reports: Shortness of Breath - Patient Data Vitals - Most Recent: Last Vital Signs Temp 36.6 C 11/27/20 00:00 Pulse 115 H 11/27/20 02:00 Resp 19 11/27/20 07:00 BP 127/49 L 11/27/20 07:00 Pulse Ox 93 L 11/27/20 07:00 Weight - Most Recent: 113.398 kg I&O - Last 24 Hours: Intake & Output 11/26/20 11/27/20 11/27/20 22:59 06:59 14:59 Intake Total 2852 636 Output Total 505 25 Balance 2349 611 Lab Results Last 24 Hours: Laboratory Results - last 24 hr 11/24/20 11/27/20 11/27/20 Range/Units 19:30 05:00 05:00 WBC 13.2 H (4.5-11.0) K/uL RBC 3.95 L (4.30-5.90) M/uL Hgb 10.9 L (12.0-15.0) g/dL Hct 34.9 L (40.0-54.0) % MCV 88 (80-98) fL MCH 28 (27-31) pg MCHC 31 L (32-36) % Plt Count 381 (150-400) K/uL Sodium 141 (140-148) mmol/L Potassium 4.4 (3.6-5.2) mmol/L Chloride 105 (100-108) mmol/L Carbon Dioxide 26 (21-32) mmol/L Anion Gap 10.1 (5.0-14.0) mmol/L BUN 52 H (7-18) mg/dL Creatinine 1.7 H (0.8-1.3) mg/dL Est Cr Clr Drug Dosing 30.24 mL/min Estimated GFR (MDRD) 39 L (>60) Glucose 111 H (74-106) mg/dL Calcium 8.2 L (8.5-10.1) mg/dL Total Bilirubin 0.7 (0.2-1.0) mg/dL AST 61 H (15-37) U/L ALT 66 (12-78) U/L Alkaline Phosphatase 114 (46-116) U/L Total Protein 6.3 L (6.4-8.2) g/dL Albumin 2.3 L (3.4-5.0) g/dL Globulin 4.0 H (2.3-3.5) g/dL Albumin/Globulin Ratio 0.6 L (1.2-2.2) Blood Type B POSITIVE Gel Antibody Screen Negative Crossmatch See Detail Cornelius Results Last 24 Hours: Microbiology 11/25/20 14:15 Gram Stain - Final Abdominal Fluid - Aspirate Wound Culture - Preliminary NO GROWTH AFTER 1 DAY Anaerobic Culture - Preliminary NO GROWTH AFTER 1 DAY 11/24/20 19:38 Aerobic Blood Culture - Preliminary Blood - Artery NO GROWTH AFTER 2 DAYS Anaerobic Blood Culture - Preliminary NO GROWTH AFTER 2 DAYS 11/24/20 19:30 Aerobic Blood Culture - Preliminary Blood - Arm, Left NO GROWTH AFTER 2 DAYS Anaerobic Blood Culture - Preliminary NO GROWTH AFTER 2 DAYS Med Orders - Current: Current Medications Alprazolam (Alprazolam 0.5 Mg Tab) 0.5 mg PO BEDTIME [facility] Last Admin: 11/26/20 20:49 Dose: 0.5 mg Documented by: Atorvastatin Calcium (Atorvastatin 10 Mg Tab) 10 mg PO BEDTIME [facility] Last Admin: 11/26/20 20:49 Dose: 10 mg Documented by: Brimonidine Tartrate (Brimonidine 0.2% Ophth Soln 5 Ml Bottle) 0 ml EYEBOTH DAILY [facility] Last Admin: 11/26/20 09:31 Dose: 1 drop Documented by: Diphenhydramine HCl (Diphenhydramine 25 Mg Cap) 25 - 50 mg PO Q4H PRN PRN Reason: ITCHING Dorzolamide/Timolol (Dorzolamide/Timolol 2%-0.5% Ophth Soln 10 Ml Bottle) 0 ml EYEBOTH BID [facility] Last Admin: 11/26/20 20:50 Dose: 1 drop Documented by: Fluticasone Propionate (Fluticasone Propionate Nasal [place] 16 Gm Bottle) 0 gm NASBOTH BID [facility] Last Admin: 11/26/20 20:50 Dose: 1 dose Documented by: Promethazine HCl 12.5 mg/ (Sodium Chloride) 50.5 mls @ 202 mls/hr IV Q8H PRN PRN Reason: NAUSEA Last Admin: 11/25/20 11:33 Dose: 202 mls/hr Documented by: Meropenem 1 gm/ Sodium (Chloride) 100 mls @ 200 mls/hr IV Q8H [facility] Last Admin: 11/27/20 01:24 Dose: 200 mls/hr Documented by: Morphine Sulfate (Morphine 2 Mg/Ml Syringe) 1 - 3 mg IV Q1H PRN PRN Reason: PAIN Last Admin: 11/26/20 17:41 Dose: 2 mg Documented by: Nicotine (Nicotine 14 Mg/24 Hr Patch) 14 mg TRDERM DAILY PRN PRN Reason: SMOKING CESSATION Verify Scop Patch 0 each TOP DAILY [facility] Last Admin: 11/26/20 09:59 Dose: Not Given Documented by: Ondansetron HCl (Ondansetron 4 Mg/2 Ml Sdv) 4 mg IVPUSH Q8H PRN PRN Reason: Nausea Last Admin: 11/25/20 09:25 Dose: 4 mg Documented by: Paroxetine HCl (Paroxetine 20 Mg Tab) 20 mg PO DAILY [facility] Last Admin: 11/26/20 09:31 Dose: 20 mg Documented by: Discontinued Medications Amlodipine Besylate (Amlodipine 5 Mg Tab) 5 mg PO DAILY [facility] Bupivacaine HCl/Epinephrine Bitart (Bupivacaine 0.5%/Epinephrine 1:200,000 50 Ml Mdv) Confirm Administered Dose 50 ml .ROUTE .STK-MED ONE Stop: 11/25/20 11:37 Last Admin: 11/25/20 14:42 Dose: 20 ml Documented by: Ropivacaine 55 ml/Dexamethasone 8 mg/Epinephrine HCl 0.4 mg/ Sodium Chloride 22.6 ml 0 ml NERVRT ASDIRECTED [facility] Last Admin: 11/25/20 14:25 Dose: 80 syringe Documented by: Dexamethasone (Dexamethasone 4 Mg/Ml Sdv) Confirm Administered Dose 4 mg .ROUTE .STK-MED ONE Stop: 11/25/20 10:50 Digoxin (Digoxin 500 Mcg/2 Ml Amp) 250 mcg IVPUSH ONETIME ONE Stop: 11/25/20 16:01 Last Admin: 11/25/20 15:44 Dose: 250 mcg Documented by: Digoxin (Digoxin 125 Mcg Tab) 250 mcg PO ONETIME ONE Stop: 11/26/20 20:35 Last Admin: 11/26/20 20:50 Dose: 250 mcg Documented by: Diphenhydramine HCl (Diphenhydramine 50 Mg/Ml Sdv) 25 - 50 mg IV Q4H PRN PRN Reason: ITCHING Fentanyl (Fentanyl 100 Mcg/2 Ml Sdv) 10 - 30 mcg IV Q1H PRN PRN Reason: PAIN Last Admin: 11/24/20 17:24 Dose: 10 mcg Documented by: Fentanyl (Fentanyl 250 Mcg/5 Ml Sdv) Confirm Administered Dose 250 mcg .ROUTE .STK-MED ONE Stop: 11/25/20 10:49 Fluticasone Propionate (Fluticasone Propionate Nasal [place] 16 Gm Bottle) 0 gm NASBOTH BID MILAN Last Admin: 11/24/20 21:45 Dose: 1 spray Documented by: Glycopyrrolate (Glycopyrrolate 0.2 Mg/Ml 5 Ml Mdv) Confirm Administered Dose 1 mg .ROUTE .STK-MED ONE Stop: 11/25/20 10:50 Haloperidol Lactate (Haloperidol Lactate 5 Mg/Ml Sdv) Confirm Administered Dose 5 mg .ROUTE .STK-MED ONE Stop: 11/25/20 20:34 Last Admin: 11/25/20 20:59 Dose: Not Given Documented by: Haloperidol Lactate (Haloperidol Lactate 5 Mg/Ml Sdv) 2.5 mg IVPUSH Q4H PRN PRN Reason: Agitation Last Admin: 11/25/20 20:30 Dose: 2.5 mg Documented by: Haloperidol Lactate (Haloperidol Lactate 5 Mg/Ml Sdv) 5 mg IVPUSH Q4H PRN PRN Reason: Agitation Last Admin: 11/26/20 04:45 Dose: 5 mg Documented by: Hydrochlorothiazide (Hydrochlorothiazide 25 Mg Tab) 25 mg PO DAILY [facility] Hydromorphone HCl (Hydromorphone 0.5 Mg/0.5 Ml Syringe) 0.5 mg IVPUSH ONETIME ONE Stop: 11/24/20 08:51 Last Admin: 11/24/20 09:50 Dose: 0.5 mg Documented by: Hydromorphone HCl (Hydromorphone 0.5 Mg/0.5 Ml Syringe) 0.5 mg IVPUSH ONETIME ONE Stop: 11/24/20 10:38 Last Admin: 11/24/20 10:58 Dose: 0.5 mg Documented by: Lactated Ringer's (Ringers, Lactated) 1,000 mls @ 1,000 mls/hr IV BOLUS ONE Stop: 11/24/20 09:49 Last Admin: 11/24/20 09:50 Dose: 1,000 mls/hr Documented by: Sodium Chloride (Normal Saline) 85 mls @ 3.5 mls/sec IV ASDIRECTED MILAN Stop: 11/24/20 11:01 Last Admin: 11/24/20 11:19 Dose: 2.5 mls/sec Documented by: Lactated Ringer's (Ringers, Lactated) 1,000 mls @ 500 mls/hr IV ASDIRECTED MILAN Sodium Chloride (Normal Saline) 1,000 mls @ 125 mls/hr IV ASDIRECTED MILAN Last Infusion: 11/26/20 10:35 Dose: 25 mls/hr Documented by: Phytonadione 5 mg/ Sodium (Chloride) 50.5 mls @ 101 mls/hr IV NOW ONE Stop: 11/24/20 16:29 Last Admin: 11/24/20 16:35 Dose: 101 mls/hr Documented by: Ertapenem 1 gm/ Sodium (Chloride) 100 mls @ 200 mls/hr IV Q24H MILAN Last Admin: 11/24/20 19:42 Dose: 200 mls/hr Documented by: Lactated Ringer's (Ringers, Lactated) 1,000 mls @ 999 mls/hr IV ASDIRECTED MILAN Stop: 11/24/20 20:31 Last Admin: 11/24/20 19:31 Dose: 999 mls/hr Documented by: Lactated Ringer's (Ringers, Lactated) 1,000 mls @ 250 mls/hr IV ASDIRECTED MILAN Stop: 11/25/20 00:59 Last Admin: 11/24/20 20:55 Dose: 250 mls/hr Documented by: Lactated Ringer's (Ringers, Lactated) 1,000 mls @ 500 mls/hr IV ONETIME ONE Stop: 11/25/20 01:36 Last Admin: 11/24/20 23:50 Dose: 500 mls/hr Documented by: Norepinephrine Bitartrate 4 mg (/ Dextrose/Water) 250 mls @ 7.5 mls/hr IV TITRATE MILAN; Protocol Last Titration: 11/26/20 16:16 Dose: 0 mcg/min, 0 mls/hr Documented by: Lactated Ringer's (Ringers, Lactated) Confirm Administered Dose 1,000 mls @ as directed .ROUTE .STK-MED ONE Stop: 11/25/20 13:50 Sodium Chloride (Normal Saline) Confirm Administered Dose 10 mls @ as directed .ROUTE .STK-MED ONE Stop: 11/25/20 14:05 Sodium Chloride (Normal Saline) 1,000 mls @ 25 mls/hr IV ASDIRECTED MILAN Iopamidol (Iopamidol 612 Mg/Ml 500 Ml Multipack Bottle) 150 ml IV ONETIME ONE Stop: 11/24/20 10:55 Last Admin: 11/24/20 11:16 Dose: 100 ml Documented by: Lisinopril (Lisinopril 20 Mg Tab) 20 mg PO DAILY MIL[facility] Neostigmine Methylsulfate (Neostigmine Methylsulfate 1 Mg/Ml 5 Ml Syringe) Confirm Administered Dose 5 mg .ROUTE .STK-MED ONE Stop: 11/25/20 10:50 Ondansetron HCl (Ondansetron 4 Mg/2 Ml Sdv) 4 mg IVPUSH ONETIME ONE Stop: 11/24/20 09:53 Last Admin: 11/24/20 09:58 Dose: 4 mg Documented by: Ondansetron HCl (Ondansetron 4 Mg/2 Ml Sdv) Confirm Administered Dose 4 mg .ROUTE .STK-MED ONE Stop: 11/25/20 10:50 Pantoprazole Sodium (Pantoprazole 40 Mg Vial) 40 mg IVPUSH Q12H MILAN Last Admin: 11/26/20 02:05 Dose: 40 mg Documented by: Phenylephrine HCl (Phenylephrine 1% 10 Mg/Ml Sdv) Confirm Administered Dose 10 mg .ROUTE .STK-MED ONE Stop: 11/25/20 14:05 Propofol (Propofol 200 Mg/20 Ml Sdv) Confirm Administered Dose 200 mg .ROUTE .STK-MED ONE Stop: 11/25/20 10:50 Rocuronium [place] (Rocuronium 50 Mg/5 Ml Vial) Confirm Administered Dose 50 mg .ROUTE .STK-MED ONE Stop: 11/25/20 10:50 Scopolamine (Scopolamine 1.5 Mg Transdermal Patch) 1.5 mg TOP Q72H PRN PRN Reason: NAUSEA Last Admin: 11/25/20 10:00 Dose: 1.5 mg Documented by: Sodium Chloride (Sodium Chloride 0.9% 10 Ml Syringe) 10 ml FLUSH ONETIME ONE Stop: 11/24/20 10:55 Last Admin: 11/24/20 11:19 Dose: 10 ml Documented by: Succinylcholine Chloride (Succinylcholine 200 Mg/10 Ml Mdv) Confirm Administered Dose 200 mg .ROUTE .STK-MED ONE Stop: 11/25/20 10:50 - Exam Quality Assessment: Supplemental Oxygen Urinary Catheter Total Time: 0Days 20Hours General: Alert, Oriented, Cooperative, No Acute Distress Lungs: Normal Respiratory Effort, Rhonchi (mild diffuse) Cardiovascular: Irregular Rhythm, Tachycardia GI/Abdominal Exam: Normal Bowel Sounds, Soft, No Distention Extremities: Pedal Edema. No: Increased Warmth Skin: Warm, Dry Psy/Mental Status: Alert, Normal Affect - Patient Data Lab Results Last 24 hrs: Laboratory Results - last 24 hr 11/24/20 11/27/20 11/27/20 Range/Units 19:30 05:00 05:00 WBC 13.2 H (4.5-11.0) K/uL RBC 3.95 L (4.30-5.90) M/uL Hgb 10.9 L (12.0-15.0) g/dL Hct 34.9 L (40.0-54.0) % MCV 88 (80-98) fL MCH 28 (27-31) pg MCHC 31 L (32-36) % Plt Count 381 (150-400) K/uL Sodium 141 (140-148) mmol/L Potassium 4.4 (3.6-5.2) mmol/L Chloride 105 (100-108) mmol/L Carbon Dioxide 26 (21-32) mmol/L Anion Gap 10.1 (5.0-14.0) mmol/L BUN 52 H (7-18) mg/dL Creatinine 1.7 H (0.8-1.3) mg/dL Est Cr Clr Drug Dosing 30.24 mL/min Estimated GFR (MDRD) 39 L (>60) Glucose 111 H (74-106) mg/dL Calcium 8.2 L (8.5-10.1) mg/dL Total Bilirubin 0.7 (0.2-1.0) mg/dL AST 61 H (15-37) U/L ALT 66 (12-78) U/L Alkaline Phosphatase 114 (46-116) U/L Total Protein 6.3 L (6.4-8.2) g/dL Albumin 2.3 L (3.4-5.0) g/dL Globulin 4.0 H (2.3-3.5) g/dL Albumin/Globulin Ratio 0.6 L (1.2-2.2) Blood Type B POSITIVE Gel Antibody Screen Negative Crossmatch See Detail Result Diagrams: 11/27/20 05:00 11/27/20 05:00 Cornelius Results Last 24 hrs: Microbiology 11/25/20 14:15 Gram Stain - Final Abdominal Fluid - Aspirate Wound Culture - Preliminary NO GROWTH AFTER 1 DAY Anaerobic Culture - Preliminary NO GROWTH AFTER 1 DAY 11/24/20 19:38 Aerobic Blood Culture - Preliminary Blood - Artery NO GROWTH AFTER 2 DAYS Anaerobic Blood Culture - Preliminary NO GROWTH AFTER 2 DAYS 11/24/20 19:30 Aerobic Blood Culture - Preliminary Blood - Arm, Left NO GROWTH AFTER 2 DAYS Anaerobic Blood Culture - Preliminary NO GROWTH AFTER 2 DAYS Sepsis Event Note - Evaluation Sepsis Screening Result: Sepsis Risk - Focused Exam Vital Signs: Vital Signs Temp Pulse Resp BP Pulse Ox 11/27/20 07:00 19 127/49 L 93 L 11/27/20 02:00 115 H 20 114/50 L 93 L 11/27/20 01:00 113 H 19 95/53 L 94 L 11/27/20 00:00 36.6 C 103 H 24 H 114/52 L 92 L 11/26/20 23:00 91 24 H 104/53 L 93 L 11/26/20 22:00 106 H 22 H 96/53 L 93 L 11/26/20 21:00 105 H 20 111/56 L 94 L - Problem List Review Problem List Initiated/Reviewed/Updated: Yes - My Orders Last 24 Hours: My Active Orders 11/27/20 08:53 Transfer Patient (Change bed) [ADT] Routine Furosemide [Lasix] 20 mg IVPUSH NOW ONE 11/27/20 13:00 Digoxin [Lanoxin] 125 mcg PO DAILY@1300 Warfarin [Coumadin] 5 mg PO ONETIME ONE 11/28/20 05:00 BASIC METABOLIC PANEL,BMP [CHEM] Timed CBC W/O DIFF,HEMOGRAM [HEME] Timed (1) INR,PT,PROTHROMBIN TIME [COAG] Timed - Plan Plan:: ASSESSMENT AND PLAN - Acute cholecystitis with septic shock-no longer requiring vasopressor support. Blood pressure slowly improving. Pain well controlled. Tolerating diet. -Antibiotic coverage with meropenem -Follow-up culture from surgical specimen -Symptomatic management of pain and nausea -Saline lock IV -Surgical follow-up per Dr. Priest Acute respiratory failure with hypoxia-suspect mild volume overload in the setting of recent resuscitation for septic shock. -Furosemide x1 this morning and reassess this afternoon -Supplement oxygen as indicated Chronic atrial fibrillation-restarting warfarin today. Suboptimal rate control. -Restart warfarin -Continue digoxin -Low-dose metoprolol -INR in the morning -Cardiac monitoring Hematochezia-probably related to inflammation from cholecystitis. This has resolved. Hemoglobin stable. -Management as above Maintenance issues - -DVT prophylaxis-mechanical -GI prophylaxis-not indicated -Nutrition-regular diet Disposition -I anticipate discharge home after the hospital stay Marco Flores M.D.
[2020-11-27] MEDS ORDERED: Furosemide 20 MG/2 ML VIAL IVPUSH ONE (09:00)
[2020-11-27] MEDS: VERIFY SCOP PATCH TOP SCH (09:25)
[2020-11-27] MEDS: Fluticasone Propionate Nasal Spray 16 GM Bottle NASBOTH SCH ×2 (09:30→21:08)
[2020-11-27] MEDS: PARoxetine 20 MG Tab PO SCH (09:30)
[2020-11-27] MEDS: Brimonidine 0.2% Ophth Soln 5 ML Bottle EYEBOTH SCH (09:31)
[2020-11-27] MEDS: Dorzolamide/Timolol 2%-0.5% Ophth Soln 10 ML Bottle EYEBOTH SCH ×2 (09:31→21:07)
[2020-11-27] MEDS: Metoprolol Tartrate 25 MG Tab PO SCH ×2 (10:09→21:09)
--- NOTE | 2020-11-27 10:21 | PN ---
DATE OF SERVICE: 11/27/2020 SUBJECTIVE: The patient doing very well today. Pain is well controlled. No nausea, vomiting, shortness of breath, or chest pain. OBJECTIVE: VITAL SIGNS: Stable. CARDIOVASCULAR: Regular rhythm and rate. RESPIRATORY: Lungs clear to consultation bilaterally. ABDOMEN: Bowel sounds positive. Drain output is decreased. ASSESSMENT: Status post laparoscopic cholecystectomy. PLAN: The patient should come out of the ICU in the next 24 hours. Continue diet. Increase activity. Discharge plan to see. Alonso Priest MD /[id number]
[2020-11-27] MEDS ORDERED: Warfarin 5 MG Tab PO ONE (13:00)
[2020-11-27] MEDS ORDERED: Digoxin 125 MCG Tab PO SCH (13:00)
[2020-11-27] MEDS ORDERED: Furosemide 40 MG/4 ML VIAL IVPUSH ONE (16:15)
[2020-11-27] MEDS ORDERED: Melatonin 3 MG Tab PO SCH (21:00)
[2020-11-27] MEDS: atorvaSTATin 10 MG Tab PO SCH (21:08)
[2020-11-27] MEDS: ALPRAZolam 0.5 MG Tab PO SCH (21:10)
[2020-11-28] MEDS: Meropenem 1 GM in Sodium Chloride 0.9% 100 ML IV SCH ×2 (02:09→10:29)
[2020-11-28] MEDS: Brimonidine 0.2% Ophth Soln 5 ML Bottle EYEBOTH SCH (08:49)
[2020-11-28] MEDS: Fluticasone Propionate Nasal Spray 16 GM Bottle NASBOTH SCH (08:49)
[2020-11-28] MEDS: Dorzolamide/Timolol 2%-0.5% Ophth Soln 10 ML Bottle EYEBOTH SCH (08:49)
[2020-11-28] MEDS: PARoxetine 20 MG Tab PO SCH (08:50)
[2020-11-28] MEDS: VERIFY SCOP PATCH TOP SCH (08:50)
[2020-11-28 09:00] VITALS: BP 103/49; PULSE 70
[2020-11-28] MEDS ORDERED: Metoprolol Tartrate 25 MG Tab PO SCH (09:00)
--- NOTE | 2020-11-28 09:18 | PCM.DCSUM1 ---
Discharge Summary - Hospital Course Brief History: 85-year-old male with history of essential hypertension, chronic atrial fibrillation who presented with right upper quadrant abdominal pain and nausea. He was admitted for management of acute cholecystitis. Diagnosis: Stroke: No - Discharge Data Discharge Date: 11/28/20 Discharge Disposition: Home, W Home Health Agency 06 Condition: Fair - Referral to Home Health Date of Face to Face Encounter: 11/28/20 Reason for Homebound Status: Acute generalized weakness after acute cholecystitis Primary Care Physician: PCP None Skilled Need: Nursing and physical therapy - Discharge Diagnosis/Problem(s) (1) Acute cholecystitis SNOMED Code(s): 45524094 ICD Code: K81.0 - ACUTE CHOLECYSTITIS Status: Acute (2) Septic shock SNOMED Code(s): 01505176 ICD Code: A41.9 - SEPSIS, UNSPECIFIED ORGANISM; R65.21 - SEVERE SEPSIS WITH SEPTIC SHOCK Status: Acute (3) Atrial fibrillation with RVR SNOMED Code(s): 541800469219590 ICD Code: I48.91 - UNSPECIFIED ATRIAL FIBRILLATION Status: Acute (4) CKD (chronic kidney disease), stage III SNOMED Code(s): 334429997 ICD Code: N18.30 - CHRONIC KIDNEY DISEASE, STAGE 3 UNSPECIFIED Status: Acute Qualifiers: Chronic kidney disease stage 3 subtype: stage 3b (GFR 30-44) Qualified Code(s): N18.32 - Chronic kidney disease, stage 3b - Patient Summary/Data Consults: Consultations 11/27/20 08:57 PT Evaluation and Treatment [CONS] Routine Please Evaluate and Treat. PT Reason for Consult: Strengthening This query below is only for informational purposes and is not editable. Admission Diagnosis/Problem: Cholecystitis Hospital Course: Frank presented to the emergency room with fever and right upper quadrant abdominal pain. Work-up in the emergency room suggested acute cholecystitis with gallbladder wall thickening and pericholecystic fluid identified on imaging. He was admitted to the hospital for further management. He was initially admitted by the surgical team with the hospitalist team consulting for his elevated INR. Ertapenem was ordered for antibiotic coverage at the time of admission. Shortly after admission the patient developed hypoxia and hypotension. He did receive fluid challenges but continued to be hypotensive so he was transferred to the intensive care unit and started on norepinephrine. Respiratory status did stabilize at 3 to 4 L of supplemental oxygen. Chest x- ray did not suggest pneumonia and atelectasis was suspected as the culprit with his significant abdominal pain. Blood pressure did stabilize with norepinephrine. The morning after admission the patient continued to have hypotension requiring vasopressor support. His white blood cell count had risen further since the time of admission. His INR was still mildly elevated despite receiving vitamin K. I did discuss the case with Dr. Priest and the plan was to proceed with surgical resection of the gallbladder given his progression to septic shock and concern that things may worsen without source control. Fortunately he did have an uneventful laparoscopic cholecystectomy. In the postoperative period he had persistent dependence on the vasopressor support but eventually we were able to wean this off. He did have some weakness as well as delirium in the early postoperative period but has progressed nicely and this has all resolved. We did have some difficulty with rapid atrial fibrillation for a while but this has improved with oral digoxin and then a transition to low-dose metoprolol. We did discontinue his antihypertensive medications because of persistent low blood pressures. He has tolerated a diet. His vital signs have stabilized. His strength has been improving. His cultures have all been negative. He is feeling well and requesting to go home. At this point I think he is safe for outpatient management. We will not prescribe further antibiotics. His pain has been controlled with just [id number] medications. We did stop the amlodipine and lisinopril/hydrochlorothiazide and this has been replaced with a low-dose of metoprolol. He has restarted his warfarin dosing but is subtherapeutic at the time of discharge. He will be f ollowing up with primary care and is interested in home care to help ease his transition home. - Patient Instructions Diet: Usual Diet as Tolerated Activity: As Tolerated, No Lifting Over 20 Pounds (for two weeks ) Showering/Bathing: May Shower Notify Provider of: Fever, Increased Pain Other/Special Instructions: 1. You were in the hospital for management of acute cholecystitis complicated by septic shock. Your gallbladder was surgically removed during the hospital stay and your condition has been improving since that time. You do not currently need any more antibiotics as the infected gallbladder has been removed. I would recommend soft, bland and boring foods for the next couple of weeks as your body adjusts to not having a gallbladder. You should not lift more than 20 pounds for the next 2 weeks as your abdomen heals from the surgery. You should seek medical attention if you develop fever greater than 101, severe abdominal pain or persistent nausea with vomiting. 2. During the hospital stay we noted low blood pressures as well as a rapid heart rate. We have made some adjustments to your blood pressure medications. I recommend that you start taking metoprolol succinate 25 mg once daily. This medication has done a good job of controlling your heart rate as well as controlling your blood pressure. 3. Stop taking both amlodipine and the lisinopril/hydrochlorothiazide combination. These medications were making your blood pressure too low. 4. I have placed a referral to home health care to provide nursing and physical therapy services. They will help ease your transition home from the hospital stay. 5. During the hospital stay we had to give you vitamin K to reverse your warfarin level and make surgery safer. To help get your INR back up to the goal range I recommend that you take 5 mg of warfarin on and Wednesday. You may return to your normal dosing starting on Wednesday. 6. INR check on 12/02 or 12/03 - Discharge Plan *PRESCRIPTION DRUG MONITORING PROGRAM REVIEWED*: Not Applicable *COPY OF PRESCRIPTION DRUG MONITORING REPORT IN PATIENT KRISTIE: Not Applicable Prescriptions/Med Rec: Metoprolol Succinate 25 mg PO DAILY #90 tab.er.24h Metoprolol Succinate 25 mg PO DAILY #5 tab.er.24h Home Medications: Home Meds ALPRAZolam [Xanax] 0.5 mg PO BEDTIME 05/11/16 [History] Cholecalciferol (Vitamin D3) [Vitamin D3] 1,000 unit PO DAILY 05/11/16 [History] Dorzolamide HCl/Timolol Maleat [Dorzolamide-Timolol Eye Drops] 1 drop TOP BID 05/11/16 [History] Fluticasone Propionate [Flonase Allergy Relief] 1 spray INH BID 05/11/16 [History] Multivitamin [Multi-Vitamin Daily] 1 tab PO DAILY 05/11/16 [History] PARoxetine [Paxil] 20 mg PO DAILY 05/11/16 [History] Simvastatin [Zocor] 20 mg PO BEDTIME 05/11/16 [History] Warfarin [Coumadin] 2.5 tab PO ASDIRECTED 05/11/16 [History] Warfarin [Coumadin] 3 mg PO ASDIRECTED 05/11/16 [History] Loratadine/Pseudoephedrine [Claritin-D 12 Hour] 1 tab PO Q12HR 11/24/20 [History] Brimonidine [Alphagan 0.2% Ophth Soln] 1 drop EYEBOTH DAILY 11/25/20 [History] Metoprolol Succinate 25 mg PO DAILY #5 tab.er.24h 11/28/20 [Rx] Metoprolol Succinate 25 mg PO DAILY #90 tab.er.24h 11/28/20 [Rx] Oxygen Therapy Mode: Room Air Patient Handouts: Metoprolol extended-release tablets, Cholecystitis, [id number] Referrals: Jesica Cline MD [Ordering Only Provider] - 12/18/20 4:10 pm (f/u 1-2 weeks -follow-up hospital stay for acute cholecystitis with septic shock) Alonso Priest MD [Physician] - 12/12/20 1:20 pm (2 weeks -follow-up hospital stay for laparoscopic cholecystectomy) - Discharge Summary/Plan Comment DC Time >30 min.: Yes (35-set up home care ) - Patient Data Vitals - Most Recent: Last Vital Signs Temp 36.6 C 11/28/20 07:39 Pulse 70 11/28/20 09:00 Resp 16 11/28/20 07:39 BP 103/49 L 11/28/20 09:00 Pulse Ox 93 L 11/28/20 08:47 Weight - Most Recent: 113.398 kg I&O - Last 24 hours: Intake & Output 11/27/20 11/28/20 11/28/20 22:59 06:59 14:59 Intake Total 400 200 Output Total 1580 750 Balance -1180 -550 Lab Results - Last 24 hrs: Laboratory Results - last 24 hr 11/24/20 11/28/20 11/28/20 Range/Units 19:30 04:28 04:28 WBC 7.8 (4.5-11.0) K/uL RBC 3.56 L (4.30-5.90) M/uL Hgb 9.9 L (12.0-15.0) g/dL Hct 31.9 L (40.0-54.0) % MCV 90 (80-98) fL MCH 28 (27-31) pg MCHC 31 L (32-36) % Plt Count 294 (150-400) K/uL PT 13.0 H (9.5-12.0) sec INR 1.20 (0.80-1.20) Sodium (140-148) mmol/L Potassium (3.6-5.2) mmol/L Chloride (100-108) mmol/L Carbon Dioxide (21-32) mmol/L Anion Gap (5.0-14.0) mmol/L BUN (7-18) mg/dL Creatinine (0.8-1.3) mg/dL Est Cr Clr Drug Dosing mL/min Estimated GFR (MDRD) (>60) Glucose (74-106) mg/dL Calcium (8.5-10.1) mg/dL Blood Type B POSITIVE Gel Antibody Screen Negative Crossmatch See Detail 11/28/20 Range/Units 04:28 WBC (4.5-11.0) K/uL RBC (4.30-5.90) M/uL Hgb (12.0-15.0) g/dL Hct (40.0-54.0) % MCV (80-98) fL MCH (27-31) pg MCHC (32-36) % Plt Count (150-400) K/uL PT (9.5-12.0) sec INR (0.80-1.20) Sodium 144 (140-148) mmol/L Potassium 3.7 (3.6-5.2) mmol/L Chloride 106 (100-108) mmol/L Carbon Dioxide 28 (21-32) mmol/L Anion Gap 9.8 (5.0-14.0) mmol/L BUN 51 H (7-18) mg/dL Creatinine 1.5 H (0.8-1.3) mg/dL Est Cr Clr Drug Dosing 34.27 mL/min Estimated GFR (MDRD) 45 L (>60) Glucose 103 (74-106) mg/dL Calcium 7.8 L (8.5-10.1) mg/dL Blood Type Gel Antibody Screen Crossmatch JASON Results - Last 24 hrs: Microbiology 11/25/20 14:15 Gram Stain - Final Abdominal Fluid - Aspirate Wound Culture - Preliminary NO GROWTH AFTER 2 DAYS Anaerobic Culture - Preliminary NO GROWTH AFTER 2 DAYS 11/24/20 19:30 Aerobic Blood Culture - Preliminary Blood - Arm, Left NO GROWTH AFTER 3 DAYS Anaerobic Blood Culture - Preliminary NO GROWTH AFTER 3 DAYS 11/24/20 19:38 Aerobic Blood Culture - Preliminary Blood - Artery NO GROWTH AFTER 3 DAYS Anaerobic Blood Culture - Preliminary NO GROWTH AFTER 3 DAYS Med Orders - Current: Current Medications Alprazolam (Alprazolam 0.5 Mg Tab) 0.5 mg PO BEDTIME [facility] Last Admin: 11/27/20 21:10 Dose: 0.5 mg Documented by: Atorvastatin Calcium (Atorvastatin 10 Mg Tab) 10 mg PO BEDTIME [facility] Last Admin: 11/27/20 21:08 Dose: 10 mg Documented by: Brimonidine Tartrate (Brimonidine 0.2% Ophth Soln 5 Ml Bottle) 0 ml EYEBOTH DAILY [facility] Last Admin: 11/28/20 08:49 Dose: 1 drop Documented by: Digoxin (Digoxin 125 Mcg Tab) 125 mcg PO DAILY@1300 [facility] Last Admin: 11/27/20 12:43 Dose: 125 mcg Documented by: Diphenhydramine HCl (Diphenhydramine 25 Mg Cap) 25 - 50 mg PO Q4H PRN PRN Reason: ITCHING Dorzolamide/Timolol (Dorzolamide/Timolol 2%-0.5% Ophth Soln 10 Ml Bottle) 0 ml EYEBOTH BID [facility] Last Admin: 11/28/20 08:49 Dose: 1 drop Documented by: Fluticasone Propionate (Fluticasone Propionate Nasal [place] 16 Gm Bottle) 0 gm NASBOTH BID [facility] Last Admin: 11/28/20 08:49 Dose: 1 dose Documented by: Promethazine HCl 12.5 mg/ (Sodium Chloride) 50.5 mls @ 202 mls/hr IV Q8H PRN PRN Reason: NAUSEA Last Admin: 11/25/20 11:33 Dose: 202 mls/hr Documented by: Meropenem 1 gm/ Sodium (Chloride) 100 mls @ 200 mls/hr IV Q8H [facility] Last Admin: 11/28/20 02:09 Dose: 200 mls/hr Documented by: Melatonin (Melatonin 3 Mg Tab) 9 mg PO BEDTIME [facility] Last Admin: 11/27/20 21:08 Dose: 9 mg Documented by: Metoprolol Tartrate (Metoprolol Tartrate 25 Mg Tab) 12.5 mg PO Q12H [facility] Last Admin: 11/28/20 09:00 Dose: 12.5 mg Documented by: Morphine Sulfate (Morphine 2 Mg/Ml Syringe) 1 - 3 mg IV Q1H PRN PRN Reason: PAIN Last Admin: 11/26/20 17:41 Dose: 2 mg Documented by: Nicotine (Nicotine 14 Mg/24 Hr Patch) 14 mg TRDERM DAILY PRN PRN Reason: SMOKING CESSATION Verify Scop Patch 0 each TOP DAILY [facility] Last Admin: 11/28/20 08:50 Dose: Not Given Documented by: Ondansetron HCl (Ondansetron 4 Mg/2 Ml Sdv) 4 mg IVPUSH Q8H PRN PRN Reason: Nausea Last Admin: 11/27/20 03:25 Dose: 4 mg Documented by: Paroxetine HCl (Paroxetine 20 Mg Tab) 20 mg PO DAILY [facility] Last Admin: 11/28/20 08:50 Dose: 20 mg Documented by: Warfarin Sodium (Warfarin 5 Mg Tab) 5 mg PO DAILY@1300 [facility] Discontinued Medications Amlodipine Besylate (Amlodipine 5 Mg Tab) 5 mg PO DAILY [facility] Bupivacaine HCl/Epinephrine Bitart (Bupivacaine 0.5%/Epinephrine 1:200,000 50 Ml Mdv) Confirm Administered Dose 50 ml .ROUTE .STK-MED ONE Stop: 11/25/20 11:37 Last Admin: 11/25/20 14:42 Dose: 20 ml Documented by: Ropivacaine 55 ml/Dexamethasone 8 mg/Epinephrine HCl 0.4 mg/ Sodium Chloride 22.6 ml 0 ml NERVRT ASDIRECTED [facility] Last Admin: 11/25/20 14:25 Dose: 80 syringe Documented by: Dexamethasone (Dexamethasone 4 Mg/Ml Sdv) Confirm Administered Dose 4 mg .ROUTE .STK-MED ONE Stop: 11/25/20 10:50 Digoxin (Digoxin 500 Mcg/2 Ml Amp) 250 mcg IVPUSH ONETIME ONE Stop: 11/25/20 16:01 Last Admin: 11/25/20 15:44 Dose: 250 mcg Documented by: Digoxin (Digoxin 125 Mcg Tab) 250 mcg PO ONETIME ONE Stop: 11/26/20 20:35 Last Admin: 11/26/20 20:50 Dose: 250 mcg Documented by: Diphenhydramine HCl (Diphenhydramine 50 Mg/Ml Sdv) 25 - 50 mg IV Q4H PRN PRN Reason: ITCHING Fentanyl (Fentanyl 100 Mcg/2 Ml Sdv) 10 - 30 mcg IV Q1H PRN PRN Reason: PAIN Last Admin: 11/24/20 17:24 Dose: 10 mcg Documented by: Fentanyl (Fentanyl 250 Mcg/5 Ml Sdv) Confirm Administered Dose 250 mcg .ROUTE .STK-MED ONE Stop: 11/25/20 10:49 Fluticasone Propionate (Fluticasone Propionate Nasal [place] 16 Gm Bottle) 0 gm NASBOTH BID [facility] Last Admin: 11/24/20 21:45 Dose: 1 spray Documented by: Furosemide (Furosemide 20 Mg/2 Ml Vial) 20 mg IVPUSH NOW ONE Stop: 11/27/20 09:01 Last Admin: 11/27/20 09:30 Dose: 20 mg Documented by: Furosemide (Furosemide 40 Mg/4 Ml Vial) 40 mg IVPUSH ONETIME ONE Stop: 11/27/20 16:16 Last Admin: 11/27/20 16:39 Dose: 40 mg Documented by: Glycopyrrolate (Glycopyrrolate 0.2 Mg/Ml 5 Ml Mdv) Confirm Administered Dose 1 mg .ROUTE .STK-MED ONE Stop: 11/25/20 10:50 Haloperidol Lactate (Haloperidol Lactate 5 Mg/Ml Sdv) Confirm Administered Dose 5 mg .ROUTE .STK-MED ONE Stop: 11/25/20 20:34 Last Admin: 11/25/20 20:59 Dose: Not Given Documented by: Haloperidol Lactate (Haloperidol Lactate 5 Mg/Ml Sdv) 2.5 mg IVPUSH Q4H PRN PRN Reason: Agitation Last Admin: 11/25/20 20:30 Dose: 2.5 mg Documented by: Haloperidol Lactate (Haloperidol Lactate 5 Mg/Ml Sdv) 5 mg IVPUSH Q4H PRN PRN Reason: Agitation Last Admin: 11/26/20 04:45 Dose: 5 mg Documented by: Hydrochlorothiazide (Hydrochlorothiazide 25 Mg Tab) 25 mg PO DAILY [facility] Hydromorphone HCl (Hydromorphone 0.5 Mg/0.5 Ml Syringe) 0.5 mg IVPUSH ONETIME ONE Stop: 11/24/20 08:51 Last Admin: 11/24/20 09:50 Dose: 0.5 mg Documented by: Hydromorphone HCl (Hydromorphone 0.5 Mg/0.5 Ml Syringe) 0.5 mg IVPUSH ONETIME ONE Stop: 11/24/20 10:38 Last Admin: 11/24/20 10:58 Dose: 0.5 mg Documented by: Lactated Ringer's (Ringers, Lactated) 1,000 mls @ 1,000 mls/hr IV BOLUS ONE Stop: 11/24/20 09:49 Last Admin: 11/24/20 09:50 Dose: 1,000 mls/hr Documented by: Sodium Chloride (Normal Saline) 85 mls @ 3.5 mls/sec IV ASDIRECTED [facility] Stop: 11/24/20 11:01 Last Admin: 11/24/20 11:19 Dose: 2.5 mls/sec Documented by: Lactated Ringer's (Ringers, Lactated) 1,000 mls @ 500 mls/hr IV ASDIRECTED [facility] Sodium Chloride (Normal Saline) 1,000 mls @ 125 mls/hr IV ASDIRECTED [facility] Last Infusion: 11/26/20 10:35 Dose: 25 mls/hr Documented by: Phytonadione 5 mg/ Sodium (Chloride) 50.5 mls @ 101 mls/hr IV NOW ONE Stop: 11/24/20 16:29 Last Admin: 11/24/20 16:35 Dose: 101 mls/hr Documented by: Ertapenem 1 gm/ Sodium (Chloride) 100 mls @ 200 mls/hr IV Q24H [facility] Last Admin: 11/24/20 19:42 Dose: 200 mls/hr Documented by: Lactated Ringer's (Ringers, Lactated) 1,000 mls @ 999 mls/hr IV ASDIRECTED [facility] Stop: 11/24/20 20:31 Last Admin: 11/24/20 19:31 Dose: 999 mls/hr Documented by: Lactated Ringer's (Ringers, Lactated) 1,000 mls @ 250 mls/hr IV ASDIRECTED [facility] Stop: 11/25/20 00:59 Last Admin: 11/24/20 20:55 Dose: 250 mls/hr Documented by: Lactated Ringer's (Ringers, Lactated) 1,000 mls @ 500 mls/hr IV ONETIME ONE Stop: 11/25/20 01:36 Last Admin: 11/24/20 23:50 Dose: 500 mls/hr Documented by: Norepinephrine Bitartrate 4 mg (/ Dextrose/Water) 250 mls @ 7.5 mls/hr IV TITRATE [facility]; Protocol Last Titration: 11/26/20 16:16 Dose: 0 mcg/min, 0 mls/hr Documented by: Lactated Ringer's (Ringers, Lactated) Confirm Administered Dose 1,000 mls @ as directed .ROUTE .STK-MED ONE Stop: 11/25/20 13:50 Sodium Chloride (Normal Saline) Confirm Administered Dose 10 mls @ as directed .ROUTE .STK-MED ONE Stop: 11/25/20 14:05 Sodium Chloride (Normal Saline) 1,000 mls @ 25 mls/hr IV ASDIRECTED [facility] Iopamidol (Iopamidol 612 Mg/Ml 500 Ml Multipack Bottle) 150 ml IV ONETIME ONE Stop: 11/24/20 10:55 Last Admin: 11/24/20 11:16 Dose: 100 ml Documented by: Lisinopril (Lisinopril 20 Mg Tab) 20 mg PO DAILY [facility] Metoprolol Tartrate (Metoprolol Tartrate 25 Mg Tab) 25 mg PO Q12H [facility] Last Admin: 11/27/20 21:09 Dose: 25 mg Documented by: Neostigmine Methylsulfate (Neostigmine Methylsulfate 1 Mg/Ml 5 Ml Syringe) Confirm Administered Dose 5 mg .ROUTE .STK-MED ONE Stop: 11/25/20 10:50 Ondansetron HCl (Ondansetron 4 Mg/2 Ml Sdv) 4 mg IVPUSH ONETIME ONE Stop: 11/24/20 09:53 Last Admin: 11/24/20 09:58 Dose: 4 mg Documented by: Ondansetron HCl (Ondansetron 4 Mg/2 Ml Sdv) Confirm Administered Dose 4 mg .ROUTE .STK-MED ONE Stop: 11/25/20 10:50 Pantoprazole Sodium (Pantoprazole 40 Mg Vial) 40 mg IVPUSH Q12H [facility] Last Admin: 11/26/20 02:05 Dose: 40 mg Documented by: Phenylephrine HCl (Phenylephrine 1% 10 Mg/Ml Sdv) Confirm Administered Dose 10 mg .ROUTE .STK-MED ONE Stop: 11/25/20 14:05 Propofol (Propofol 200 Mg/20 Ml Sdv) Confirm Administered Dose 200 mg .ROUTE .STK-MED ONE Stop: 11/25/20 10:50 Rocuronium [place] (Rocuronium 50 Mg/5 Ml Vial) Confirm Administered Dose 50 mg .ROUTE .STK-MED ONE Stop: 11/25/20 10:50 Scopolamine (Scopolamine 1.5 Mg Transdermal Patch) 1.5 mg TOP Q72H PRN PRN Reason: NAUSEA Last Admin: 11/25/20 10:00 Dose: 1.5 mg Documented by: Sodium Chloride (Sodium Chloride 0.9% 10 Ml Syringe) 10 ml FLUSH ONETIME ONE Stop: 11/24/20 10:55 Last Admin: 11/24/20 11:19 Dose: 10 ml Documented by: Succinylcholine Chloride (Succinylcholine 200 Mg/10 Ml Mdv) Confirm Administered Dose 200 mg .ROUTE .STK-MED ONE Stop: 11/25/20 10:50 Warfarin Sodium (Warfarin 5 Mg Tab) 5 mg PO ONETIME ONE Stop: 11/27/20 13:01 Last Admin: 11/27/20 12:43 Dose: 5 mg Documented by:
--- NOTE | 2020-11-28 12:49 | PN ---
DATE OF SERVICE: 11/28/2020 SUBJECTIVE: The patient is doing very well today. Pain is well controlled. No nausea, vomiting, shortness of breath, or chest pain. He is not taking any p.o. pain medications. OBJECTIVE: VITAL SIGNS: Stable and afebrile per nursing report. CARDIOVASCULAR: Regular rhythm and rate. RESPIRATORY: Lungs are clear to auscultation bilaterally. ABDOMEN: Incision is healing well. Drain output is less than 20 per day and serosanguineous. ASSESSMENT: Status post laparoscopic cholecystectomy. PLAN: The patient will be discharged today. Please see discharge summary for further details. Alonso Priest MD /[id number]
[2020-11-28] MEDS ORDERED: Warfarin 5 MG Tab PO SCH (13:00)
== END 2020-11-28 13:12 | disposition home health service (06) | DRG 853 ==
LOC: JP.ED 07:58 → JP.MS 15:36 → JP.ICU 20:05
PROVIDERS: ADMIT Surgery; ATTEND Surgery
PROC: 3E033XZ Introduction of Vasopressor into Peripheral Vein, Percutaneous Approach (ICD-10-PCS; 2020-11-24)
PROC: 0FT44ZZ Resection of Gallbladder, Percutaneous Endoscopic Approach (ICD-10-PCS; principal; 2020-11-25)
PROC: 0W9G4ZZ Drainage of Peritoneal Cavity, Percutaneous Endoscopic Approach (ICD-10-PCS; 2020-11-25)
DX: A41.9 Sepsis, unspecified organism (principal); R65.21 Severe sepsis with septic shock; I48.91 Unspecified atrial fibrillation; J96.01 Acute respiratory failure with hypoxia; I10 Essential (primary) hypertension; K81.0 Acute cholecystitis; I48.20 Chronic atrial fibrillation, unspecified; K92.1 Melena; Z20.822 Contact with and (suspected) exposure to COVID-19; I12.9 Hypertensive chronic kidney disease with stage 1 through stage 4 chronic kidney disease, or unspecified chronic kidney disease; H40.9 Unspecified glaucoma; E78.00 Pure hypercholesterolemia, unspecified; E66.9 Obesity, unspecified; F41.9 Anxiety disorder, unspecified; F32.9 Major depressive disorder, single episode, unspecified; Z96.649 Presence of unspecified artificial hip joint; G47.30 Sleep apnea, unspecified; M19.90 Unspecified osteoarthritis, unspecified site; Z96.642 Presence of left artificial hip joint; Z79.01 Long term (current) use of anticoagulants; Z88.0 Allergy status to penicillin; Z88.1 Allergy status to other antibiotic agents; Z79.899 Other long term (current) drug therapy; Z98.49 Cataract extraction status, unspecified eye; Z98.890 Other specified postprocedural states; Z87.891 Personal history of nicotine dependence
CPT/HCPCS: 0241U; 36415; 36600; 71045; 74177; 80048; 80053; 82272; 82803; 83605; 83690; 84484; 85018; 85025; 85027; 85610; 86140; 86850; 86900; 86901; 86920; 86922; 87040; 87070; 87075; 87205; 93005; 96374; 96375; 96376; 97162; 97530; 97535; 99284; 99285; A9270-GY; C9113; J0171; J0330; J1100; J1160; J1170; J1335; J1630; J1940; J2185; J2270; J2370; J2405; J2550; J2704; J2710; J2795; J3010; J3430; J3490; J7030; J7060; J7120; Q9967